=== PATIENT | male | born 1990 | race Caucasian/White ===

== ENCOUNTER 2017-01-30 06:17 | Emergency (ER) | payer MEDICAID ==
[2017-01-30 06:19] VITALS: BMI 24.2
[2017-01-30 06:37] VITALS: TEMP 98
--- NOTE | 2017-01-30 06:51 | ED PDOC ---
Arrival/HPI - General Chief Complaint: Palpitations Time Seen by Provider: 01/30/17 06:39 Historian: Patient - History of Present Illness Narrative History of Present Illness (Text): 01/30/17 06:48 26 yo male with h/o Anxiety, presents c/o of palpitations, chest tightness, and feeling tense x 1 hour. States that he is also over thinking a lot and hasn't been able to sleep well. This feels like his pattern of anxiety and sometimes he needs to come to the ED for medications. No chest pain. No nausea or vomiting. No back pain. No fever or cough. PMD: None. Psych: None. Past Medical History - Provider Review Nursing Documentation Reviewed: Yes - Infectious Disease Hx of Infectious Diseases: None - Cardiac Hx Cardiac Disorders: No - Pulmonary Hx Respiratory Disorders: No - Neurological Hx Neurological Disorder: No - HEENT Hx HEENT Disorder: No - Renal Hx Renal Disorder: No - Endocrine/Metabolic Hx Endocrine Disorders: No - Hematological/Oncological Hx Blood Disorders: No - Integumentary Hx Dermatological Disorder: No - Musculoskeletal/Rheumatological Hx Musculoskeletal Disorders: No - Gastrointestinal Hx Gastrointestinal Disorders: No - Genitourinary/Gynecological Hx Genitourinary Disorders: No - Psychiatric Hx Anxiety: Yes Hx Substance Use: No - Anesthesia Hx Anesthesia: No Hx Anesthesia Reactions: No Hx Malignant Hyperthermia: No - Suicidal Assessment Feels Threatened In Home Enviroment: No Family/Social History - Physician Review Nursing Documentation Reviewed: Yes Family/Social History: No Known Family HX Smoking Status: Never Smoked Hx Alcohol Use: No Hx Substance Use: No Allergies/Home Meds Allergies/Adverse Reactions: Allergies No Known Allergies Allergy (Verified 11/22/15 03:53) Review of Systems - Physician Review All systems were reviewed & negative as marked: Yes - Review of Systems Constitutional: Normal Eyes: Normal ENT: Normal Respiratory: Normal. absent: SOB Cardiovascular: Palpitations. absent: Chest Pain, Edema, Calf Pain, [place], Orthopnea Gastrointestinal: Normal Genitourinary Male: Normal Musculoskeletal: Normal Skin: Normal Neurological: Normal Endocrine: Normal Hemo/Lymphatic: Normal Psychiatric: Anxiety. absent: Depression, Suicidal Ideation Physical Exam Vital Signs Reviewed: Yes Vital Signs Temp Pulse Resp BP Pulse Ox 01/30/17 06:36 98.0 F 92 H 18 148/94 H 100 Temperature: Afebrile Blood Pressure: Normal Pulse: Regular Respiratory Rate: Normal Appearance: Positive for: Well-Appearing, Non-Toxic, Comfortable Pain Distress: None Mental Status: Positive for: Alert and Oriented X 3 - Systems Exam Head: Present: Atraumatic, Normocephalic Pupils: Present: PERRL Extroacular Muscles: Present: EOMI Conjunctiva: Present: Normal Mouth: Present: Moist Mucous Membranes Neck: Present: Normal Range of Motion Respiratory/Chest: Present: Clear to Auscultation, Good Air Exchange. No: Respiratory Distress, Accessory Muscle Use Cardiovascular: Present: Regular Rate and Rhythm, Normal S1, S2. No: Murmurs Abdomen: Present: Normal Bowel Sounds. No: Tenderness, Distention, Peritoneal Signs Back: Present: Normal Inspection Upper Extremity: Present: Normal Inspection. No: Cyanosis, Edema Lower Extremity: Present: Normal Inspection. No: Edema Neurological: Present: GCS=15, CN II-XII Intact, Speech Normal Skin: Present: Warm, Dry, Normal Color. No: Rashes Psychiatric: Present: Alert, Oriented x 3, Normal Insight, Normal Concentration. No: Suicidal Ideation, Homicidal Ideation Medical Decision Making ED Course and Treatment: 01/30/17 06:51 26 yo male with palpitations, chest tightness, feeling tense similar to previous anxiety symptoms -- EKG -- Ativan -- Reevaluate 01/30/17 06:[address] Escobedo to reevaluate and disposition. - EKG Interpretation Interpreted by ED Physician: Yes (NSR at [address] elevations, nl intervals) Type: 12 lead EKG Disposition/Present on Arrival - Present on Arrival Any Indicators Present on Arrival: No History of DVT/PE: No History of Uncontrolled Diabetes: No Urinary Catheter: No History of Decub. Ulcer: No History Surgical Site Infection Following: None - Disposition Have Diagnosis and Disposition been Completed?: No Diagnosis: Anxiety Disposition Time: 06:52 Condition: GOOD
[2017-01-30 07:26] VITALS: BP 117/85; PULSE 84; RESP 14; O2SAT 99
--- NOTE | 2017-01-30 07:42 | ED PDOC ---
Physical Exam Vital Signs Temp Pulse Resp BP Pulse Ox 01/30/17 07:25 84 14 117/85 99 01/30/17 06:36 98.0 F 92 H 18 148/94 H 100 Medical Decision Making ED Course and Treatment: 01/30/17 07:42 pt endorsed to me pending reassessement. pt reports feeing improved. comfortable with dc. advise outpt f/u return precautions - Medication Orders Current Medication Orders: Discontinued Medications Lorazepam (Ativan) 1 mg PO ONCE ONE PRN Reason: Protocol Stop: 01/30/17 06:48 Last Admin: 01/30/17 07:01 Dose: 1 MG Behavioural Document 01/30/17 07:01 SB (Rec: 01/30/17 07:01 SB [id number]) Maintenance Maintenance Dose No Nonmedicinal Nonmedicinal Interventions Redirect Therapeutic Communication Behavior Behavior for Medication: Anxiety Disposition/Present on Arrival - Present on Arrival Any Indicators Present on Arrival: No History of DVT/PE: No History of Uncontrolled Diabetes: No Urinary Catheter: No History of Decub. Ulcer: No History Surgical Site Infection Following: None - Disposition Have Diagnosis and Disposition been Completed?: Yes Diagnosis: Anxiety Disposition: HOME/ ROUTINE Disposition Time: 07:42 Patient Problems: Current Active Problems Problem Status Diagnosed Anxiety Acute Condition: GOOD Discharge Instructions (ExitCare): Chest Pain (ED), Anxiety (ED) Print Language: THAI Additional Instructions: please follow up with your doctor. return toe r with worsening symptoms or concerns Referrals: [facility] [Outside] - Follow up with primary [facility] [Outside] - [place] up with [place] [facility] [place] - Follow up with primary
--- NOTE | 2017-01-31 09:25 | CARD ---
APPROVED REPORT EKG Measurement Heart [id number] [id number] <Conclusion> Normal sinus rhythm Normal ECG No change
== END 2017-01-30 07:56 | disposition home or self-care (01) ==
LOC: ED 06:17
DX: F41.9 Anxiety disorder, unspecified (principal)

== ENCOUNTER 2017-06-16 02:41 | Emergency (ER) | payer MEDICAID ==
[2017-06-16 02:41] VITALS: BMI 24.2
[2017-06-16 02:51] VITALS: TEMP 98.2; O2SAT 100
[2017-06-16] MEDS ORDERED: DiphenhydrAMINE 50 mg/ml Inj IM STA (03:00)
--- NOTE | 2017-06-16 03:02 | ED PDOC ---
Arrival/HPI - General Chief Complaint: Anxiety Time Seen by Provider: 06/16/17 02:55 Historian: Patient - History of Present Illness Narrative History of Present Illness (Text): 06/16/17 02:59 James La is a 26 year old male, with a history of anxiety, presents to the emergency department for evaluation of "strange" feeling after taking half of 2mg Xanax bar tablet off the streets. Patient states he feels jittery and thinks that Xanax may be laced with something. Patient also notes that he is anxious and hyperventilating with some stiffness to his fingers. Denies any fever, chills, headache, dizziness, nausea, vomiting, diarrhea, or any other complaints at this time. Time/Duration: Prior to Arrival Severity Level: Mild Activities at Onset: Light Past Medical History - Provider Review Nursing Documentation Reviewed: Yes - Infectious Disease Hx of Infectious Diseases: None - Cardiac Hx Cardiac Disorders: No - Pulmonary Hx Respiratory Disorders: No - Neurological Hx Neurological Disorder: No - HEENT Hx HEENT Disorder: No - Renal Hx Renal Disorder: No - Endocrine/Metabolic Hx Endocrine Disorders: No - Hematological/Oncological Hx Blood Disorders: No - Integumentary Hx Dermatological Disorder: No - Musculoskeletal/Rheumatological Hx Musculoskeletal Disorders: No - Gastrointestinal Hx Gastrointestinal Disorders: No - Genitourinary/Gynecological Hx Genitourinary Disorders: No - Psychiatric Hx Anxiety: Yes Hx Substance Use: No - Anesthesia Hx Anesthesia: No Hx Anesthesia Reactions: No Hx Malignant Hyperthermia: No - Suicidal Assessment Feels Threatened In Home Enviroment: No Family/Social History - Physician Review Nursing Documentation Reviewed: Yes Family/Social History: No Known Family HX Smoking Status: Never Smoked Hx Alcohol Use: No Hx Substance Use: No Allergies/Home Meds Allergies/Adverse Reactions: Allergies No Known Allergies Allergy (Verified 06/16/17 02:52) Home Medications: Home Meds Medication Instructions Recorded Confirmed No Known Home Med 06/16/17 06/16/17 Review of Systems - Physician Review All systems were reviewed & negative as marked: Yes - Review of Systems Constitutional: Normal. absent: Fatigue, Fevers Respiratory: absent: SOB, Cough, Sputum Cardiovascular: absent: Chest Pain, Palpitations Gastrointestinal: absent: Abdominal Pain, Diarrhea, Nausea, Vomiting Musculoskeletal: Other (stiffness to fingers ) Neurological: absent: Headache, Dizziness Psychiatric: Anxiety Physical Exam Vital Signs Reviewed: Yes Vital Signs Temp Pulse Resp BP Pulse Ox 06/16/17 05:37 80 16 114/63 100 06/16/17 02:47 98.2 F 110 H 20 128/69 100 Temperature: Afebrile Blood Pressure: Normal Pulse: Tachycardic Respiratory Rate: Normal Appearance: Positive for: Well-Appearing, Non-Toxic, Comfortable Pain Distress: None Mental Status: Positive for: Alert and Oriented X 3 - Systems Exam Head: Present: Atraumatic, Normocephalic Pupils: Present: PERRL Extroacular Muscles: Present: EOMI Conjunctiva: Present: Normal Mouth: Present: Moist Mucous Membranes Respiratory/Chest: Present: Clear to Auscultation, Good Air Exchange. No: Respiratory Distress, Accessory Muscle Use Cardiovascular: Present: Regular Rate and Rhythm, Normal S1, S2. No: Murmurs Abdomen: Present: Normal Bowel Sounds. No: Tenderness, Distention, Peritoneal Signs Upper Extremity: Present: Normal Inspection. No: Cyanosis, Edema Lower Extremity: Present: Normal Inspection. No: Edema Neurological: Present: GCS=15, CN II-XII Intact, Speech Normal, Motor Func Grossly Intact, Normal Sensory Function Skin: Present: Warm, Dry, Normal Color. No: Rashes Psychiatric: Present: Alert, Oriented x 3 Medical Decision Making ED Course and Treatment: 06/16/17 03:03 Impression: A 26 year old male who presents to the emergency department complaining of feeling "strange" and thinks a developed a reaction after ingesting half a 2mg Xanax tablet off the streets. Plan: -- Benadryl -- Reassess and disposition Progress Notes: 06/16/17 05:41 On re-evaluation, patient feels better and is in no acute distress. I have discussed the results and plan with the patient, who expresses understanding. Patient in agreement with plan to be discharged home. Patient is stable for discharge. Patient was instructed to follow up with physician or return if symptoms worsen or new concerning symptoms arise. - Medication Orders Current Medication Orders: Discontinued Medications Diphenhydramine HCl (Benadryl) 50 mg IM ONCE STA Stop: 06/16/17 03:01 Last Admin: 06/16/17 03:36 Dose: 50 mg - Scribe Statement The provider has reviewed the documentation as recorded by the Scribe Juan Meyer Provider Attestation: Provider Scribe Attestation: All medical record entries made by the Scribe were at my direction and personally dictated by me. I have reviewed the chart and agree that the record accurately reflects my personal performance of the history, physical exam, medical decision making, and the department course for this patient. I have also personally directed, reviewed, and agree with the discharge instructions and disposition. Disposition/Present on Arrival - Present on Arrival Any Indicators Present on Arrival: No History of DVT/PE: No History of Uncontrolled Diabetes: No Urinary Catheter: No History of Decub. Ulcer: No History Surgical Site Infection Following: None - Disposition Have Diagnosis and Disposition been Completed?: Yes Diagnosis: Anxiety, Drug reaction Disposition: HOME/ ROUTINE Disposition Time: 05:31 Patient Plan: Discharge Condition: GOOD Discharge Instructions (ExitCare): Adverse Drug Reaction (ED), Anxiety (ED) Additional Instructions: Avoid xanax drug use/follow up with your doctor Forms: [employer] (Guatemalan)
[2017-06-16 05:37] VITALS: BP 114/63; PULSE 80; RESP 16
== END 2017-06-16 05:39 | disposition home or self-care (01) ==
LOC: ED 02:41
DX: F41.9 Anxiety disorder, unspecified (principal); T42.4X5A Adverse effect of benzodiazepines, initial encounter; Y92.410 Unspecified street and highway as the place of occurrence of the external cause
CPT/HCPCS: 96372; 99283; J1200

== ENCOUNTER 2017-06-20 02:43 | Emergency (ER) | payer MEDICAID ==
[2017-06-20 02:49] VITALS: BMI 23.5
[2017-06-20 03:10] VITALS: TEMP 98
--- NOTE | 2017-06-20 04:20 | ED PDOC ---
Arrival/HPI - General Chief Complaint: Anxiety Time Seen by Provider: 06/20/17 02:55 Historian: Patient - History of Present Illness Narrative History of Present Illness (Text): 06/20/17 04:16 A 26 year old male presents to the emergency department complaining of recurrent anxiety attacks and shortness of breath. Patient reports he has had an anxiety attack everyday for about a year. Patient reports taking Xanax two days ago. Hasn't taken any medications today. Denies any drug use. Denies any suicidal ideation or any other complaints at this time. Symptom Onset: Sudden Symptom Course: Unchanged Activities at Onset: Rest Context: Home Past Medical History - Provider Review Nursing Documentation Reviewed: Yes - Infectious Disease Hx of Infectious Diseases: None - Cardiac Hx Cardiac Disorders: No - Pulmonary Hx Respiratory Disorders: No - Neurological Hx Neurological Disorder: No - HEENT Hx HEENT Disorder: No - Renal Hx Renal Disorder: No - Endocrine/Metabolic Hx Endocrine Disorders: No - Hematological/Oncological Hx Blood Disorders: No - Integumentary Hx Dermatological Disorder: No - Musculoskeletal/Rheumatological Hx Musculoskeletal Disorders: No - Gastrointestinal Hx Gastrointestinal Disorders: No - Genitourinary/Gynecological Hx Genitourinary Disorders: No - Psychiatric Hx Anxiety: Yes Hx Substance Use: No - Anesthesia Hx Anesthesia: No Hx Anesthesia Reactions: No Hx Malignant Hyperthermia: No - Suicidal Assessment Feels Threatened In Home Enviroment: No Family/Social History - Physician Review Nursing Documentation Reviewed: Yes Family/Social History: No Known Family HX Smoking Status: Never Smoked Hx Alcohol Use: No Hx Substance Use: No Allergies/Home Meds Allergies/Adverse Reactions: Allergies No Known Allergies Allergy (Verified 06/16/17 02:52) Home Medications: Home Meds Medication Instructions Recorded Confirmed No Known Home Med 06/16/17 06/20/17 Review of Systems - Physician Review All systems were reviewed & negative as marked: Yes - Review of Systems Respiratory: SOB Psychiatric: Anxiety. absent: Suicidal Ideation Physical Exam Vital Signs Reviewed: Yes Vital Signs Temp Pulse Resp BP Pulse Ox 06/20/17 03:09 98.0 F 87 17 120/82 98 06/20/17 02:44 98.2 F 80 16 120/82 97 Temperature: Afebrile Blood Pressure: Normal Pulse: Regular Respiratory Rate: Normal Appearance: Positive for: Well-Appearing, Non-Toxic, Comfortable Pain Distress: None Mental Status: Positive for: Alert and Oriented X 3 - Systems Exam Head: Present: Atraumatic, Normocephalic Pupils: Present: PERRL Extroacular Muscles: Present: EOMI Conjunctiva: Present: Normal Mouth: Present: Moist Mucous Membranes Neck: Present: Normal Range of Motion Respiratory/Chest: Present: Clear to Auscultation, Good Air Exchange. No: Respiratory Distress, Accessory Muscle Use Cardiovascular: Present: Regular Rate and Rhythm, Normal S1, S2. No: Murmurs Abdomen: Present: Normal Bowel Sounds. No: Tenderness, Distention, Peritoneal Signs Back: Present: Normal Inspection Upper Extremity: Present: Normal Inspection. No: Cyanosis, Edema Lower Extremity: Present: Normal Inspection. No: Edema Neurological: Present: GCS=15, CN II-XII Intact, Speech Normal Skin: Present: Warm, Dry, Normal Color. No: Rashes Psychiatric: Present: Alert, Oriented x 3, Normal Insight, Normal Concentration. No: Suicidal Ideation Medical Decision Making ED Course and Treatment: Patient feels better and is in no acute distress. Patient in agreement with plan to be discharged home. Patient is stable for discharge. Patient was instructed to follow up with physician or return if symptoms worsen or new concerning symptoms arise. - Medication Orders Current Medication Orders: Discontinued Medications Lorazepam (Ativan) 1 mg PO STAT STA PRN Reason: Protocol Stop: 06/20/17 03:49 - Scribe Statement The provider has reviewed the documentation as recorded by the Jacinta Pandya Provider Scribe Attestation: All medical record entries made by the Scribe were at my direction and personally dictated by me. I have reviewed the chart and agree that the record accurately reflects my personal performance of the history, physical exam, medical decision making, and the department course for this patient. I have also personally directed, reviewed, and agree with the discharge instructions and disposition. Disposition/Present on Arrival - Present on Arrival History of DVT/PE: No History of Uncontrolled Diabetes: No Urinary Catheter: No History of Decub. Ulcer: No History Surgical Site Infection Following: None - Disposition Diagnosis: Recurrent anxiety Disposition: HOME/ ROUTINE Disposition Time: 03:56 Condition: STABLE Discharge Instructions (ExitCare): Generalized Anxiety Disorder (ED) Additional Instructions: Please follow up with a primary doctor this week. Return to the ER for any worsening symptoms or for any other concerns. Referrals: [facility] [Outside] - [facility] with [facility] [[facility]] - Follow up with primary Forms: [email or web address] (Wolof)
[2017-06-20 05:34] VITALS: BP 118/81; PULSE 78; RESP 18; O2SAT 100
== END 2017-06-20 04:35 | disposition home or self-care (01) ==
LOC: ED 02:43
DX: F41.9 Anxiety disorder, unspecified (principal)

== ENCOUNTER 2017-07-26 01:26 | Observation (INO) | payer MEDICAID ==
[2017-07-26 01:26] VITALS: BMI 24.2
--- NOTE | 2017-07-26 02:39 | ED PDOC ---
Arrival/HPI <Owen Chu - Last Filed: 07/26/17 05:27> - General Historian: Patient <Irving Anglin - Last Filed: 07/26/17 05:46> - General Chief Complaint: Cough, Cold, Congestion Time Seen by Provider: 07/26/17 02:30 - History of Present Illness Narrative History of Present Illness (Text): 07/26/17 02:37 27 year old male presenting to the emergency room with complaint of palpitations. Patient states he has a history of anxiety that he has treated with purchasing xanax and ativan on the street. He has recently been seen in the [facility] ED multiple times in the past couple of months for similar events. Patient states that he feels like his heart is racing. Patient reports episodes of SOB associated with his palpitations. This feels similar to other panic attacks he has had in the past. Patient reports that he started with a cold yesterday. He states that he has been having a runny nose. Patient took DayQuil around 8 pm tonight. Denies f/c, n/v, d/c, hassan, cp. Patient has not followed with anyone since his last visit. Says he plans on going to a treatment center in [place] for his anxiety. Patient denies any illicit drug use. Previous records show that he has purchased and taken adderall, xanax and ativan off of the street. 07/26/17 03:58 (Irving Anglin) Past Medical History - Provider Review Nursing Documentation Reviewed: Yes - Infectious Disease Hx of Infectious Diseases: None - Cardiac Hx Cardiac Disorders: No - Pulmonary Hx Respiratory Disorders: No - Neurological Hx Neurological Disorder: No - HEENT Hx HEENT Disorder: No - Renal Hx Renal Disorder: No - Endocrine/Metabolic Hx Endocrine Disorders: No - Hematological/Oncological Hx Blood Disorders: No - Integumentary Hx Dermatological Disorder: No - Musculoskeletal/Rheumatological Hx Musculoskeletal Disorders: No - Gastrointestinal Hx Gastrointestinal Disorders: No - Genitourinary/Gynecological Hx Genitourinary Disorders: No - Psychiatric Hx Anxiety: Yes Hx Substance Use: No - Anesthesia Hx Anesthesia: No Hx Anesthesia Reactions: No Hx Malignant Hyperthermia: No - Suicidal Assessment Feels Threatened In Home Enviroment: No <Irving Anglin - Last Filed: 07/26/17 05:46> Family/Social History - Physician Review Nursing Documentation Reviewed: Yes Family/Social History: Unknown Family HX Smoking Status: Current Some Days Smoker Hx Alcohol Use: No Hx Substance Use: No <Irving Anglin - Last Filed: 07/26/17 05:46> Allergies/Home Meds <Owen Chu - Last Filed: 07/26/17 05:27> <Irving Anglin - Last Filed: 07/26/17 05:46> Allergies/Adverse Reactions: Allergies No Known Allergies Allergy (Verified 07/26/17 01:44) Home Medications: Home Meds Medication Instructions Recorded Confirmed No Known Home Med 06/16/17 07/26/17 Review of Systems - Physician Review All systems were reviewed & negative as marked: Yes - Review of Systems Constitutional: Normal. absent: Fatigue, Fevers Eyes: Normal. absent: Vision Changes, Photophobia ENT: Rhinorrhea. absent: Sore Throat, Epistaxis Respiratory: SOB. absent: Cough, Sputum Cardiovascular: Palpitations. absent: Chest Pain, Edema, Calf Pain, Syncope Gastrointestinal: Normal. absent: Abdominal Pain, Constipation, Diarrhea, Nausea, Vomiting Genitourinary Male: Normal. absent: Dysuria, Frequency Musculoskeletal: Normal Skin: Normal. absent: Rash, Pruritis Neurological: absent: Headache, Dizziness Endocrine: Normal. absent: Diaphoresis Psychiatric: Normal <Irving Anglin - Last Filed: 07/26/17 05:46> Physical Exam Vital Signs Reviewed: Yes Temperature: Afebrile Blood Pressure: Normal Pulse: Tachycardic Respiratory Rate: Normal Appearance: Positive for: Well-Appearing, Non-Toxic, Comfortable Pain Distress: None Mental Status: Positive for: Alert and Oriented X 3 - Systems Exam Head: Present: Atraumatic, Normocephalic Extroacular Muscles: Present: EOMI Conjunctiva: Present: Normal Mouth: Present: Moist Mucous Membranes, Dry Nose (External): Present: Atraumatic, Abrasion Nose (Internal): Present: No Active Bleeding, Moist, Other (white crust around left nostril). No: Clear Mucous, Rhinorrhea Neck: Present: Normal Range of Motion. No: Meningeal Signs, JVD Respiratory/Chest: Present: Clear to Auscultation, Good Air Exchange. No: Respiratory Distress, Accessory Muscle Use, Wheezes, Rales, Rhonchi, Tachypneic Cardiovascular: Present: Normal S1, S2, Tachycardic Abdomen: Present: Tenderness, Normal Bowel Sounds. No: Distention, Peritoneal Signs Upper Extremity: Present: Normal Inspection, NORMAL PULSES. No: Edema Lower Extremity: Present: Normal Inspection, NORMAL PULSES. No: Edema, CALF TENDERNESS Neurological: Present: GCS=15 Skin: Present: Warm, Dry, Normal Color. No: Rashes Psychiatric: Present: Alert, Oriented x 3, Anxious <Irving Anglin - Last Filed: 07/26/17 05:46> Vital Signs Temp Pulse Resp BP Pulse Ox 07/26/17 01:42 98.3 F 126 H 17 146/87 100 Medical Decision Making <Owen Chu - Last Filed: 07/26/17 05:27> <Irving Anglin - Last Filed: 07/26/17 05:46> ED Course and Treatment: Impression: Pt seen and evaluated with medical and health services manager. Pt, whose past medical history includes anxiety, presented for palpitations. Pt states symptoms are consistent with previous episodes of anxiety. Aware and agrees with HPI, clinical findings , plan, and management. Plan: -- IV fluids -- Ativan -- Reassess and disposition 07/26/17 05:17 Case discussed with medical and health services manager manager continuous improvement, who is aware and agrees with plan. Case discussed with Dr. Robertson, who is aware and agrees with plan. Accepts pt in to hospitalist service. Pt will go to Telemetry observation for tachycardia and hypophosphatemia. (Owen Chu) 07/26/17 02:43 Anxiety - Palpitations - EKG - Sinus Tachy @139bpm, normal axis, otherwise normal EKG - Ativan 1mg PO - no change, Ativan 1mg IV given - CBC - wnl - CMP - wnl - Mag 1.6/Phos 1.1 replete with Neutra-Phos - UDS DISPO: Admit to Telemetry observation for tachycardia and hypophosphatemia. (Irving Anglin) - Lab Interpretations Lab Results: 07/26/17 04:30 07/26/17 04:30 Lab Results 07/26/17 04:30: Sodium 146, Potassium 3.8, Chloride 111 H, Carbon Dioxide 24, Anion Gap 15, BUN 11, Creatinine 0.8, Est GFR ( Amer) > 60, Est GFR (Non- Af Amer) > 60, Random Glucose 99, Calcium 8.7, Phosphorus 1.1 L*, Magnesium 1.6 L, Total Bilirubin 0.5, AST 40, ALT 61 H, Alkaline Phosphatase 41, Lactate Dehydrogenase 464, Total Creatine Kinase 123, Troponin I < 0.01, Total Protein 6.9, Albumin 4.2, Globulin 2.7, Albumin/Globulin Ratio 1.6 07/26/17 04:30: WBC 8.0 D, RBC 5.02, Hgb 15.1, Hct 41.9 L, MCV 83.5, MCH 30.1, MCHC 36.0, RDW 13.1, Plt Count 221, MPV 9.1, Gran % 82.0 H, Lymph % (Auto) 7.9 L , [place] % (Auto) 8.7 H, Eos % (Auto) 1.3 L, Baso % (Auto) 0.1, Gran # 6.53 H, Lymph # 0.6 L, [place] # 0.7 H, Eos # 0.1, Baso # 0.01 - Medication Orders Current Medication Orders: Discontinued Medications Sodium Chloride (Sodium Chloride 0.9%) 1,000 mls @ 999 mls/hr IV .Q1H1M STA Stop: 07/26/17 03:40 Last Admin: 07/26/17 02:51 Dose: 999 mls/hr Lorazepam (Ativan) 1 mg PO ONCE ONE PRN Reason: Protocol Stop: 07/26/17 02:34 Last Admin: 07/26/17 03:05 Dose: 1 mg Lorazepam (Ativan) 1 mg IVP ONCE ONE PRN Reason: Protocol Stop: 07/26/17 04:26 Last Admin: 07/26/17 04:41 Dose: 1 mg Lorazepam (Ativan) Confirm Administered Dose 2 mg .ROUTE .STK-MED ONE Stop: 07/26/17 04:34 Last Admin: 07/26/17 04:41 Dose: Not Given Potassium Phos/Sodium Phos (Neutra-Phos) 1 pkt PO ONCE ONE Stop: 07/26/17 05:07 - PA / EDUCATIONAL CONSULTANT / Resident Statement ALLIE has reviewed & agrees with the documentation as recorded. MD/DO has examined the patient and agrees with the treatment plan. <Owen Chu - Last Filed: 07/26/17 05:27> Disposition/Present on Arrival <Owen Chu - Last Filed: 07/26/17 05:27> - Present on Arrival Any Indicators Present on Arrival: No History of DVT/PE: No History of Uncontrolled Diabetes: No Urinary Catheter: No History of Decub. Ulcer: No History Surgical Site Infection Following: None - Disposition Have Diagnosis and Disposition been Completed?: Yes Disposition Time: 05:12 Patient Plan: Admission, Observation, Telemetry <Irving Anglin - Last Filed: 07/26/17 05:46> - Disposition Diagnosis: Anxiety, Hypophosphatemia, Tachycardia Disposition: HOSPITALIZED Patient Problems: Current Active Problems Problem Status Onset Anxiety Acute Hypophosphatemia Acute Tachycardia Acute Condition: GUARDED
[2017-07-26] MEDS ORDERED: Sodium Chloride 0.9% 1,000 ML IV STA (02:40)
[2017-07-26] MEDS ORDERED: Metoprolol 1 mg/ml Inj IVP STA (04:25)
[2017-07-26 04:45] LABS: BASO # 0.01 K/mm3 (0.0-2.0); BASO % 0.1 % (0.0-3.0); EOS # 0.1 (0.0-0.7); EOS % 1.3 % (1.5-5.0); GRAN # 6.53 (1.4-6.5); HEMATOCRIT 41.9 % (42.0-52.0); LYMPH # 0.6 (1.2-3.4); LYMPH % 7.9 % (22.0-35.0); MEAN CELL VOLUME 83.5 fl (80.0-105.0); MEAN CORPUSCULAR HEMOGLOBIN 30.1 pg (25.0-35.0); MEAN PLATELET VOLUME 9.1 fl (7.0-11.0); MONO # 0.7 (0.1-0.6); MONO % 8.7 % (1.0-6.0); RED CELL DISTRIBUTION WIDTH 13.1 % (11.5-14.5)
[2017-07-26 04:53] LABS: ALB/GLOB RATIO 1.6 (1.1-1.8); ALKALINE PHOSPHATASE 41 U/L (38-126); ALT/SGPT 61 U/L (7-56); AST/SGOT 40 U/L (17-59); BILIRUBIN,TOTAL 0.5 mg/dL (0.2-1.3); BLOOD UREA NITROGEN 11 mg/dL (7-21); CALCIUM 8.7 mg/dL (8.4-10.5); CARBON DIOXIDE 24 mmol/L (21-33); CHLORIDE 111 mmol/L (98-107); GFR AFRICAN-AMERICAN > 60; GLUCOSE,RANDOM 99 mg/dL (70-110); MAGNESIUM 1.6 mg/dL (1.7-2.2); POTASSIUM 3.8 mmol/L (3.6-5.0); SODIUM 146 mmol/L (132-148); TOTAL PROTEIN 6.9 g/dL (5.8-8.3)
[2017-07-26 04:55] LABS: PHOSPHOROUS 1.1 mg/dL (2.5-4.5)
[2017-07-26 05:05] LABS: TROPONIN I < 0.01 ng/mL
[2017-07-26] MEDS ORDERED: Potassium & Sodium Phosphate PO ONE (05:06)
[2017-07-26] MEDS ORDERED: Sodium Phosphate 15 MMOLE in Dextrose 5% In Water 250 ML IVPB ONE ×2 (05:45→06:20)
[2017-07-26] MEDS ORDERED: Magnesium Sulfate 1 gm in D5W 1 GM/100 ML BAG IVPB ONE (05:46)
--- NOTE | 2017-07-26 05:47 | CP.PCM.HP ---
<MAXIMILIAN GABRIEL - Last Filed: 07/26/17 06:50> History of Present Illness - History of Present Illness History of Present Illness: Maximilian Gabriel, H&P for Dr. Robertson: CC: palpitations 27M with PMH anxiety, panic attacks, presents for palpitations x 6h [employer]. Pt states that he felt like he was having a panic attack, has sob, chest tightness , numbness/tingling in bilateral hands x few mins. Pt did have a cold the past few days, for which he has been taking Dayquil. Denies cp, diaphoresis, n/v/f/c , abdominal pain, constipation/diarrhea, urinary symptoms, leg swelling. In ED, pt tachycardic 139 S tachy, bp 146/87, phop 1.1, Mg 1.6, UDS neg, received ativan 1 mg POx2. neutra phosph PO x1, NS 1L bolus. PMH: anxiety, panic attacks PSH: denies ALl; NKA FH: Father, Multiple myeloma SH: lives with family. Denies alcohol use. Smokes 1-2 ciggs occasionally. Denies drug use. Previous records show that he has purchased and taken adderall , xanax and ativan off of the street. PMD: Dr Helms (visited last month - was prescribed Zoloft, but did not refill prescription) Present on Admission - Present on Admission Any Indicators Present on Admission: No History of DVT/PE: No History of Uncontrolled Diabetes: No Urinary Catheter: No Decubitus Ulcer Present: No History Surgical Site Infection Following: None Review of Systems - Review of Systems All systems: reviewed and no additional remarkable complaints except Review of Systems: as per hpi Past Patient History - Infectious Disease Hx of Infectious Diseases: None - Past Social History Smoking Status: Current Some Days Smoker - CARDIAC Hx Cardiac Disorders: No - PULMONARY Hx Respiratory Disorders: No - NEUROLOGICAL Hx Neurological Disorder: No - HEENT Hx HEENT Problems: No - RENAL Hx Chronic Kidney Disease: No - ENDOCRINE/METABOLIC Hx Endocrine Disorders: No - HEMATOLOGICAL/ONCOLOGICAL Hx Blood Disorders: No - INTEGUMENTARY Hx Dermatological Problems: No - MUSCULOSKELETAL/RHEUMATOLOGICAL Hx Musculoskeletal Disorders: No - GASTROINTESTINAL Hx Gastrointestinal Disorders: No - GENITOURINARY/GYNECOLOGICAL Hx Genitourinary Disorders: No - PSYCHIATRIC Hx Anxiety: Yes Hx Substance Use: No - SURGICAL HISTORY Hx Surgeries: No - ANESTHESIA Hx Anesthesia: No Hx Anesthesia Reactions: No Hx Malignant Hyperthermia: No Meds Allergies/Adverse Reactions: Allergies Allergy/AdvReac Type Severity Reaction Status Date / Time No Known Allergies Allergy Verified 07/26/17 01:44 Physical Exam - Constitutional Appears: No Acute Distress, Younger Than Stated Age - Head Exam Head Exam: ATRAUMATIC, NORMOCEPHALIC - Eye Exam Eye Exam: EOMI, PERRL. absent: Conjunctival injection, Nystagmus, Scleral icterus Pupil Exam: NORMAL ACCOMODATION, PERRL. absent: Irregular, Unequal - ENT Exam ENT Exam: Mucous Membranes Moist - Neck Exam Neck exam: Negative for: Lymphadenopathy, Thyromegaly - Respiratory Exam Respiratory Exam: Clear to Auscultation Bilateral, NORMAL BREATHING PATTERN. absent: Accessory Muscle Use, Rales, Rhonchi, Wheezes - Cardiovascular Exam Cardiovascular Exam: Tachycardia, REGULAR RHYTHM, +S1, +S2. absent: Systolic Murmur - GI/Abdominal Exam GI & Abdominal Exam: Normal Bowel Sounds, Soft. absent: Guarding, Tenderness - Extremities Exam Extremities exam: Positive for: normal capillary refill, pedal pulses present. Negative for: calf tenderness, pedal edema - Neurological Exam Neurological exam: Alert, CN II-XII Intact, Oriented x3, Reflexes Normal - Psychiatric Exam Psychiatric exam: Normal Mood - Skin Skin Exam: Dry, Warm Results - Vital Signs Recent Vital Signs: Last Vital Signs Temp 98.3 F 07/26/17 01:42 Pulse 126 H 07/26/17 01:42 Resp 17 07/26/17 01:42 BP 146/87 07/26/17 01:42 Pulse Ox 100 07/26/17 01:42 - Labs Result Diagrams: 07/26/17 04:30 07/26/17 04:30 Assessment & Plan - Assessment and Plan (Free Text) Assessment: 27M with PMH anxiety d/o, panic attacks, admitted for tachycardia, hypophosphatemia, hypomagnesemia. Plan: Tachycardia: - EKG shows HR 139, S tachycadia, nrml QTc - Hr 120's 140's. Given Lopressor 5 mg IV stat dose. - UDS neg for cocaine - Cardio c/s, f/u recs. Kept NPO Hypophosphatemia: - Given 1 neutraphosp Pox1 in ED; given 30 mmol NaPhoph IV - f/u phosph level - Consider Endo c/s Hypomagnesemia: - repleted Hx of anxiety disorder: - Ativan 1 mg POx2 given in ED - F/u Psych c/s Discussed w Dr Robertson. Chava Gabriel, PGY1 - Date & Time Date: 07/26/17 Time: 06:59 <Rodrick Robertson - Last Filed: 07/26/17 18:52> Results - Vital Signs Recent Vital Signs: Last Vital Signs Temp 98 F 07/26/17 18:00 Pulse 100 H 07/26/17 18:00 Resp 18 07/26/17 18:00 BP 128/77 07/26/17 18:00 Pulse Ox 99 07/26/17 05:48 - Labs Result Diagrams: 07/26/17 04:30 07/26/17 09:10 Labs: Laboratory Results - last 24 hr 07/26/17 07/26/17 07/26/17 06:30 09:10 10:20 D-Dimer, Quantitative 314 H Sodium 143 Potassium 3.9 Chloride 105 Carbon Dioxide 28 Anion Gap 14 BUN 9 Creatinine 0.8 Est GFR ( Amer) > 60 Est GFR (Non-Af Amer) > 60 Random Glucose 113 H Calcium 9.5 Phosphorus 3.4 Magnesium 2.1 Total Bilirubin 0.6 AST 43 ALT 67 H Alkaline Phosphatase 39 Total Protein 7.9 Albumin 4.8 Globulin 3.1 Albumin/Globulin Ratio 1.5 TSH 3rd Generation 1.90 Attending/Attestation - Attestation I have personally seen and examined this patient.: Yes I have fully participated in the care of the patient.: Yes I have reviewed all pertinent clinical information: Yes Notes (Text): 07/26/17 18:45 Patient was seen when he was in the ER in bed # 4. Agree with history , physical examination , assessment and plan. Following should be added. 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
[2017-07-26] MEDS ORDERED: Metoprolol 1 mg/ml Inj IVP ONE (06:22)
[2017-07-26 09:37] LABS: ALB/GLOB RATIO 1.5 (1.1-1.8); ALKALINE PHOSPHATASE 39 U/L (38-126); ALT/SGPT 67 U/L (7-56); AST/SGOT 43 U/L (17-59); BILIRUBIN,TOTAL 0.6 mg/dL (0.2-1.3); BLOOD UREA NITROGEN 9 mg/dL (7-21); CALCIUM 9.5 mg/dL (8.4-10.5); CARBON DIOXIDE 28 mmol/L (21-33); CHLORIDE 105 mmol/L (98-107); GFR AFRICAN-AMERICAN > 60; GLUCOSE,RANDOM 113 mg/dL (70-110); MAGNESIUM 2.1 mg/dL (1.7-2.2); PHOSPHOROUS 3.4 mg/dL (2.5-4.5); POTASSIUM 3.9 mmol/L (3.6-5.0); SODIUM 143 mmol/L (132-148); TOTAL PROTEIN 7.9 g/dL (5.8-8.3)
--- NOTE | 2017-07-26 14:49 | RAD ---
HISTORY: SOB COMPARISON: No prior. TECHNIQUE: Chest PA and lateral FINDINGS: LUNGS: No active pulmonary disease. PLEURA: No significant pleural effusion identified. No pneumothorax apparent. CARDIOVASCULAR: Normal. OSSEOUS STRUCTURES: No significant abnormalities. VISUALIZED UPPER ABDOMEN: Normal. OTHER FINDINGS: None. IMPRESSION: No active disease.
--- NOTE | 2017-07-26 17:37 | CT ---
PROCEDURE: CT Chest with contrast (Pulmonary Angiogram) HISTORY: elevated d-dimer COMPARISON: None available. TECHNIQUE: Axial computed tomography images were obtained of the chest in the pulmonary arterial phase of enhancement. Coronal and sagittal reformatted images were created and reviewed. Intravenous contrast dose: 150 cc Omnipaque 350 Mean Hounsfield unit values in the main pulmonary artery: 260.16 Radiation dose: Total exam DLP = 349.86 mGy-cm. This CT exam was performed using one or more of the following dose reduction techniques: Automated exposure control, adjustment of the mA and/or kV according to patient size, and/or use of iterative reconstruction technique. FINDINGS: PULMONARY ARTERIES: Unremarkable. No pulmonary embolism. AORTA: No acute findings. No thoracic aortic aneurysm. LUNGS: Unremarkable. No nodule, mass or pulmonary consolidation. PLEURAL SPACES: Unremarkable. No effusion or pneuomothorax. HEART: Unremarkable. No cardiomegaly. No significant pericardial effusion. LYMPH NODES: No lymphadenopathy. BONES, CHEST WALL: Unremarkable. No fracture or destructive lesion OTHER FINDINGS: The head of the pancreas is prominent measuring 3.4 x 3.6 cm. Although pancreatic neoplasm is unlikely, elective followup recommended. Suggest elective CT attention pancreas be foreign after administration of intravenous contrast supplemented by oral contrast. IMPRESSION: Unremarkable CT pulmonary angiogram. No pulmonary embolus. No suspicious pulmonary abnormalities. Prominent head of the pancreas. Elective followup recommended.
--- NOTE | 2017-07-26 18:03 | CARD ---
APPROVED REPORT EKG Measurement Heart [id number] <Conclusion> Sinus tachycardia Otherwise normal ECG
[2017-07-26 19:41] LABS: PH,URINE 6.5 (4.7-8.0); URINE APPEARANCE CLEAR (CLEAR); URINE BILIRUBIN NEGATIVE (NEGATIVE); URINE BLOOD NEGATIVE (NEGATIVE); URINE COLOR YELLOW (YELLOW); URINE GLUCOSE (UA) NEGATIVE (NEGATIVE); URINE KETONE NEGATIVE (NEGATIVE); URINE LEUKOCYTE ESTERASE NEGATIVE Leu/uL (NEGATIVE); URINE PROTEIN NEGATIVE mg/dL (<30 mg/dL)
--- NOTE | 2017-07-27 01:05 | CON ---
CARDIOLOGY CONSULTATION DATE: REASON FOR CONSULTATION: Shortness of breath and palpitation. HISTORY OF PRESENT ILLNESS: The patient is a 27-year-old Palestinian born young male to [place] parents who lives with his parents. He presented because of palpitation. According to the father, the patient called his father while the patient was with his friends complaining of shortness of breath, palpitations and dizziness and he advised him to go to the emergency room. According to the father, the patient has frequent visits to the emergency room because of anxiety, but was never admitted and he is seeking to see an outpatient psychiatrist which he never saw so far. The patient is not on any medications at home and according to the father never had any history of depression or suicidal ideations. According to the patient himself, he felt shortness of breath and palpitation as well as dizziness. He denies any fainting. The patient denied any history of bronchial asthma. SOCIAL HISTORY: Nonsmoker, nondrinker. He is studying in [employer]. MEDICATIONS: The patient is on no medications at home. In the hospital, he is on Ativan 1 mg IV push as a single dose and Lopressor 5 mg intravenously as a single dose, and normal saline infusion. PHYSICAL EXAMINATION: GENERAL: The patient is young middle-aged male who does not appear to be in acute distress. VITAL SIGNS: Blood pressure 139/76, heart rate 136, temperature 98.2, and respirations 18. HEENT: Normocephalic. NECK: No JVD. CHEST: Clear. HEART: S1, S2 regular. ABDOMEN: Soft. EXTREMITIES: No edema. LABORATORY DATA: Urine drug screen is negative. Today SMA-7 is within normal limits except for glucose of 113, phosphorus was below normal on admission and currently 3.4 after receiving one packet of Neutra-Phos. EKG reveals sinus tachycardia at the rate of 139. There is no chest x-ray seen so far. ASSESSMENT: 1. Palpitations, sinus tachycardia. Rule out palpitations, sinus tachycardia, and shortness of breath. Rule out pulmonary infarction. 2. Rule out underlying dehydration. 3. History of anxiety. 4. Improved hypophosphatemia. CONDITION: Case was discussed with Dr. Cervantes, with the patient and his family. Echocardiographic study has been ordered as well as chest x-ray PA and lateral and urine drug screen; however, the patient intends to leave because he has classes in the college tomorrow and decision will be made to the patient after at least obtaining the chest x-ray and D-Dimer. Rickie Olivares MD
[2017-07-27 03:26] VITALS: RESP 20
[2017-07-27 06:22] LABS: BASO # 0.02 K/mm3 (0.0-2.0); BASO % 0.3 % (0.0-3.0); EOS # 0.3 (0.0-0.7); EOS % 5.4 % (1.5-5.0); GRAN # 2.71 (1.4-6.5); GRAN % 44.7 % (50.0-68.0); HEMATOCRIT 45.6 % (42.0-52.0); LYMPH # 2.4 (1.2-3.4); LYMPH % 40.1 % (22.0-35.0); MEAN CELL VOLUME 84.1 fl (80.0-105.0); MEAN CORPUSCULAR HEMOGLOBIN 29.5 pg (25.0-35.0); MEAN CORPUSCULAR HGB CONC 35.1 g/dl (31.0-37.0); MEAN PLATELET VOLUME 9.1 fl (7.0-11.0); MONO # 0.6 (0.1-0.6); MONO % 9.5 % (1.0-6.0); RED CELL DISTRIBUTION WIDTH 13.4 % (11.5-14.5); WHITE BLOOD COUNT 6.1 10^3/ul (4.5-11.0)
[2017-07-27 06:28] LABS: ALB/GLOB RATIO 1.3 (1.1-1.8); ALKALINE PHOSPHATASE 40 U/L (38-126); ALT/SGPT 58 U/L (7-56); AST/SGOT 33 U/L (17-59); BILIRUBIN,TOTAL 0.9 mg/dL (0.2-1.3); BLOOD UREA NITROGEN 11 mg/dL (7-21); CALCIUM 9.3 mg/dL (8.4-10.5); CARBON DIOXIDE 26 mmol/L (21-33); CHLORIDE 102 mmol/L (95-110); GFR AFRICAN-AMERICAN > 60; GLUCOSE,RANDOM 92 mg/dL (70-110); POTASSIUM 3.7 mmol/L (3.6-5.0); SODIUM 140 mmol/L (132-148); TOTAL PROTEIN 7.8 g/dL (5.8-8.3)
--- NOTE | 2017-07-27 08:37 | US ---
HISTORY: Leg pain and swelling. Evaluate for DVT PHYSICIAN(S): Deric Steward MD. TECHNIQUE: Duplex sonography and color-flow Doppler with graded compression were used to evaluate the deep venous systems of both lower extremities. FINDINGS: The visualized deep venous systems of both lower extremities are sonographically normal and compressible. Normal wave forms and augmentation are seen. There is no sonographic evidence for deep venous thrombosis in the visualized segments of both lower extremities. IMPRESSION: No sonographic evidence for deep venous thrombosis in the visualized segments of both lower extremities.
--- NOTE | 2017-07-27 12:19 | PN ---
DATE: SUBJECTIVE: The patient denied any dizziness ano no reported arrhythmia. PHYSICAL EXAMINATION: VITAL SIGNS: Blood pressure of 116/65, heart rate of 82, and temperature of 97.3. HEENT: Normocephalic. CHEST: Clear. HEART: Sounds regular. EXTREMITIES: No edema. LABORATORY DATA: CT angio of the chest; no sign for pulmonary embolus and venous Doppler of the lower extremities, no DVT. ASSESSMENT: 1. Dizziness and shortness of breath on admission. 2. History of anxiety disorder. 3. Improved hypophosphatemia. RECOMMENDATIONS: Continue current telemetry observation. The patient is schedule to undergo echo cardiac studies today, which I will review once this performed. Rickie Olivares MD
--- NOTE | 2017-07-27 14:43 | CP.PCM.DIS ---
<Robel Rios - Last Filed: 07/27/17 19:04> Provider - Provider Date of Admission: 07/26/17 05:26 Attending physician: Nelida Mcdaniel MD Primary care physician: Michael Fan APN Consults: Dr. Olivares [employer] Time Spent in preparation of Discharge (in minutes): 44 Hospital Course - Lab Results Lab Results: Micro Results 07/26/17 13:30 Blood-Venous Blood Culture - Preliminary NO GROWTH AFTER 24 HOURS Most Recent Lab Values WBC 6.1 10^3/ul (4.5-11.0) D 07/27/17 05:35 RBC 5.42 10^6/uL (3.5-6.1) 07/27/17 05:35 Hgb 16.0 g/dL (14.0-18.0) 07/27/17 05:35 Hct 45.6 % (42.0-52.0) 07/27/17 05:35 MCV 84.1 fl (80.0-105.0) 07/27/17 05:35 MCH 29.5 pg (25.0-35.0) 07/27/17 05:35 MCHC 35.1 g/dl (31.0-37.0) 07/27/17 05:35 RDW 13.4 % (11.5-14.5) 07/27/17 05:35 Plt Count 229 10^3/uL (120.0-450.0) 07/27/17 05:35 MPV 9.1 fl (7.0-11.0) 07/27/17 05:35 Gran % 44.7 % (50.0-68.0) L 07/27/17 05:35 Lymph % (Auto) 40.1 % (22.0-35.0) H 07/27/17 05:35 [place] % (Auto) 9.5 % (1.0-6.0) H 07/27/17 05:35 Eos % (Auto) 5.4 % (1.5-5.0) H 07/27/17 05:35 Baso % (Auto) 0.3 % (0.0-3.0) 07/27/17 05:35 Gran # 2.71 (1.4-6.5) 07/27/17 05:35 Lymph # 2.4 (1.2-3.4) 07/27/17 05:35 [place] # 0.6 (0.1-0.6) 07/27/17 05:35 Eos # 0.3 (0.0-0.7) 07/27/17 05:35 Baso # 0.02 K/mm3 (0.0-2.0) 07/27/17 05:35 D-Dimer, Quantitative 314 mg/L FEU (0-0.50) H 07/26/17 10:20 Sodium 140 mmol/L (132-148) 07/27/17 05:35 Potassium 3.7 mmol/L (3.6-5.0) 07/27/17 05:35 Chloride 102 mmol/L (95-110) 07/27/17 05:35 Carbon Dioxide 26 mmol/L (21-33) 07/27/17 05:35 Anion Gap 16 (10-20) 07/27/17 05:35 BUN 11 mg/dL (7-21) 07/27/17 05:35 Creatinine 0.9 mg/dL (0.5-1.4) 07/27/17 05:35 Est GFR ( Amer) > 60 07/27/17 05:35 Est GFR (Non-Af Amer) > 60 07/27/17 05:35 Random Glucose 92 mg/dL (70-110) 07/27/17 05:35 Calcium 9.3 mg/dL (8.4-10.5) 07/27/17 05:35 Phosphorus 3.4 mg/dL (2.5-4.5) 07/26/17 09:10 Magnesium 2.1 mg/dL (1.7-2.2) 07/26/17 09:10 Total Bilirubin 0.9 mg/dL (0.2-1.3) 07/27/17 05:35 AST 33 U/L (17-59) 07/27/17 05:35 ALT 58 U/L (7-56) H 07/27/17 05:35 Alkaline Phosphatase 40 U/L (38-126) 07/27/17 05:35 Lactate Dehydrogenase 464 U/L (333-699) 07/26/17 04:30 Total Creatine Kinase 123 U/L (35-230) 07/26/17 04:30 Troponin I < 0.01 ng/mL 07/26/17 04:30 Total Protein 7.8 g/dL (5.8-8.3) 07/27/17 05:35 Albumin 4.4 g/dL (3.0-4.8) 07/27/17 05:35 Globulin 3.4 gm/dL 07/27/17 05:35 Albumin/Globulin Ratio 1.3 (1.1-1.8) 07/27/17 05:35 TSH 3rd Generation 1.90 mIU/mL (0.46-4.68) 07/26/17 06:30 Urine Color Yellow (YELLOW) 07/26/17 19:15 Urine Appearance Clear (CLEAR) 07/26/17 19:15 Urine pH 6.5 (4.7-8.0) 07/26/17 19:15 Ur Specific Lynn <= 1.005 (1.005-1.035) 07/26/17 19:15 Urine Protein Negative mg/dL (<30 mg/dL) 07/26/17 19:15 Urine Glucose (UA) Negative mg/dL (NEGATIVE) 07/26/17 19:15 Urine Ketones Negative mg/dL (NEGATIVE) 07/26/17 19:15 Urine Blood Negative (NEGATIVE) 07/26/17 19:15 Urine Nitrate Negative (NEGATIVE) 07/26/17 19:15 Urine Bilirubin Negative (NEGATIVE) 07/26/17 19:15 Urine Urobilinogen 1.0 E.U./dL (<1 E.U./dL) H 07/26/17 19:15 Ur Leukocyte Esterase Negative Sukhwinder/uL (NEGATIVE) 07/26/17 19:15 Urine Opiates Screen Negative (NEGATIVE) 07/26/17 19:15 Urine Methadone Screen Negative (NEGATIVE) 07/26/17 19:15 Ur Barbiturates Screen Negative (NEGATIVE) 07/26/17 19:15 Ur Phencyclidine Scrn Negative (NEGATIVE) 07/26/17 19:15 Ur Amphetamines Screen Negative (NEGATIVE) 07/26/17 19:15 U Benzodiazepines Scrn Positive (NEGATIVE) H 07/26/17 19:15 U Oth Cocaine Metabols Negative (NEGATIVE) 07/26/17 19:15 U Cannabinoids Screen Negative (NEGATIVE) 07/26/17 19:15 - Hospital Course Hospital Course: 27 year old male with a history of anxiety disorder (unspecified) who presents with complaints of palpitations, dyspnea, and feeling of derealization. He was tachycardic withh low blood levels of phosphate and magnesium on presentation to the ED. Work-up for the patient's persistent tachycardia was negative for DVT in the lower extremity, PE, hyperthyroidism, structural heart disease, or drugs that can be detected by Urine toxicology. The patient did have an elevated D-dimer which prompted the LE doppler US and CT angiography for PE protocol. By exclusion of an identifiable organic cause, and based on the patient's history and general affect, it was surmised that anxiety/panic disorder may be the underlying cause of this patient's symptoms. The patient was discharged with the below mentioned instructions, including a prescription for Hydroxyzine Pamoate 50 mg BID for anxiety PRN per psychiatry. - Date & Time of H&P Date of H&P: 07/27/17 Time of H&P: 13:00 Discharge Exam - Head Exam Head Exam: ATRAUMATIC, NORMOCEPHALIC - Eye Exam Eye Exam: EOMI, Normal appearance, PERRL - ENT Exam ENT Exam: Mucous Membranes Moist, Normal Oropharynx - Neck Exam Neck exam: Normal Inspection - Respiratory Exam Respiratory Exam: Clear to PA & Lateral, NORMAL BREATHING PATTERN - GI/Abdominal Exam GI & Abdominal Exam: Normal Bowel Sounds, Soft. absent: Guarding, Rebound - Extremities Exam Extremities exam: normal capillary refill, normal inspection, pedal pulses present - Back Exam Back exam: NORMAL INSPECTION. absent: CVA tenderness (L), CVA tenderness (R) - Neurological Exam Neurological exam: Alert, CN II-XII Intact, Oriented x3 - Psychiatric Exam Psychiatric exam: Anxious - Skin Skin Exam: Dry, Intact, Normal Color, Warm Discharge Plan - Discharge Medications Prescriptions: hydrOXYzine Pamoate [Vistaril] 50 mg PO BID PRN #28 cap PRN Reason: Anxiety - Follow Up Plan Condition: GUARDED Disposition: HOME/ ROUTINE Instructions: Palpitations (DC), Generalized Anxiety Disorder (DC) Additional Instructions: 1) No drug use 2) No alcohol use. 3) Patient should follow-up and see PMD to discuss hospital stay, within 1 week of discharge date. 4) Patient should see therapist, as he scheduled. 5) Elective follow up Computed Tomography for pancreatic head enlargement. This is most likely an incidental finding of no clinical significance given patient denies jaundice, weight loss, or early satiety. 6) Patient should take medication as prescribed. 7) Please follow up with Dr Helms for possible outpatient echo. 8) Take the prescribed medication Vistaril 50 mg bid for 2 weeks as need for anxiety, this medications might make you sleepy, so please don't take it if you' re going to be driving. Referrals: Katey Helms MD [Staff Provider] - Michael Fan APN [Primary Care Provider] - Follow up with primary <Violeta EDGE,Nelida - Last Filed: 07/28/17 16:01> Provider - Provider Date of Admission: 07/26/17 05:26 Attending physician: Nelida Mcdaniel MD Primary care physician: Michael Fan [facility] Course - Lab Results Lab Results: Micro Results 07/26/17 13:30 Blood-Venous Blood Culture - Preliminary NO GROWTH AFTER 48 HOURS Most Recent Lab Values WBC 6.1 10^3/ul (4.5-11.0) D 07/27/17 05:35 RBC 5.42 10^6/uL (3.5-6.1) 07/27/17 05:35 Hgb 16.0 g/dL (14.0-18.0) 07/27/17 05:35 Hct 45.6 % (42.0-52.0) 07/27/17 05:35 MCV 84.1 fl (80.0-105.0) 07/27/17 05:35 MCH 29.5 pg (25.0-35.0) 07/27/17 05:35 MCHC 35.1 g/dl (31.0-37.0) 07/27/17 05:35 RDW 13.4 % (11.5-14.5) 07/27/17 05:35 Plt Count 229 10^3/uL (120.0-450.0) 07/27/17 05:35 MPV 9.1 fl (7.0-11.0) 07/27/17 05:35 Gran % 44.7 % (50.0-68.0) L 07/27/17 05:35 Lymph % (Auto) 40.1 % (22.0-35.0) H 07/27/17 05:35 [place] % (Auto) 9.5 % (1.0-6.0) H 07/27/17 05:35 Eos % (Auto) 5.4 % (1.5-5.0) H 07/27/17 05:35 Baso % (Auto) 0.3 % (0.0-3.0) 07/27/17 05:35 Gran # 2.71 (1.4-6.5) 07/27/17 05:35 Lymph # 2.4 (1.2-3.4) 07/27/17 05:35 [place] # 0.6 (0.1-0.6) 07/27/17 05:35 Eos # 0.3 (0.0-0.7) 07/27/17 05:35 Baso # 0.02 K/mm3 (0.0-2.0) 07/27/17 05:35 D-Dimer, Quantitative 314 mg/L FEU (0-0.50) H 07/26/17 10:20 Sodium 140 mmol/L (132-148) 07/27/17 05:35 Potassium 3.7 mmol/L (3.6-5.0) 07/27/17 05:35 Chloride 102 mmol/L (95-110) 07/27/17 05:35 Carbon Dioxide 26 mmol/L (21-33) 07/27/17 05:35 Anion Gap 16 (10-20) 07/27/17 05:35 BUN 11 mg/dL (7-21) 07/27/17 05:35 Creatinine 0.9 mg/dL (0.5-1.4) 07/27/17 05:35 Est GFR ( Amer) > 60 07/27/17 05:35 Est GFR (Non-Af Amer) > 60 07/27/17 05:35 Random Glucose 92 mg/dL (70-110) 07/27/17 05:35 Calcium 9.3 mg/dL (8.4-10.5) 07/27/17 05:35 Phosphorus 3.4 mg/dL (2.5-4.5) 07/26/17 09:10 Magnesium 2.1 mg/dL (1.7-2.2) 07/26/17 09:10 Total Bilirubin 0.9 mg/dL (0.2-1.3) 07/27/17 05:35 AST 33 U/L (17-59) 07/27/17 05:35 ALT 58 U/L (7-56) H 07/27/17 05:35 Alkaline Phosphatase 40 U/L (38-126) 07/27/17 05:35 Lactate Dehydrogenase 464 U/L (333-699) 07/26/17 04:30 Total Creatine Kinase 123 U/L (35-230) 07/26/17 04:30 Troponin I < 0.01 ng/mL 07/26/17 04:30 Total Protein 7.8 g/dL (5.8-8.3) 07/27/17 05:35 Albumin 4.4 g/dL (3.0-4.8) 07/27/17 05:35 Globulin 3.4 gm/dL 07/27/17 05:35 Albumin/Globulin Ratio 1.3 (1.1-1.8) 07/27/17 05:35 TSH 3rd Generation 1.90 mIU/mL (0.46-4.68) 07/26/17 06:30 Urine Color Yellow (YELLOW) 07/26/17 19:15 Urine Appearance Clear (CLEAR) 07/26/17 19:15 Urine pH 6.5 (4.7-8.0) 07/26/17 19:15 Ur Specific [place] <= 1.005 (1.005-1.035) 07/26/17 19:15 Urine Protein Negative mg/dL (<30 mg/dL) 07/26/17 19:15 Urine Glucose (UA) Negative mg/dL (NEGATIVE) 07/26/17 19:15 Urine Ketones Negative mg/dL (NEGATIVE) 07/26/17 19:15 Urine Blood Negative (NEGATIVE) 07/26/17 19:15 Urine Nitrate Negative (NEGATIVE) 07/26/17 19:15 Urine Bilirubin Negative (NEGATIVE) 07/26/17 19:15 Urine Urobilinogen 1.0 E.U./dL (<1 E.U./dL) H 07/26/17 19:15 Ur Leukocyte Esterase Negative Sukhwinder/uL (NEGATIVE) 07/26/17 19:15 Urine Opiates Screen Negative (NEGATIVE) 07/26/17 19:15 Urine Methadone Screen Negative (NEGATIVE) 07/26/17 19:15 Ur Barbiturates Screen Negative (NEGATIVE) 07/26/17 19:15 Ur Phencyclidine Scrn Negative (NEGATIVE) 07/26/17 19:15 Ur Amphetamines Screen Negative (NEGATIVE) 07/26/17 19:15 U Benzodiazepines Scrn Positive (NEGATIVE) H 07/26/17 19:15 U Oth Cocaine Metabols Negative (NEGATIVE) 07/26/17 19:15 U Cannabinoids Screen Negative (NEGATIVE) 07/26/17 19:15 Attending/Attestation - Attestation I have personally seen and examined this patient.: Yes I have fully participated in the care of the patient.: Yes I have reviewed all pertinent clinical information, including history, physical exam and plan: Yes Notes (Text): 07/28/17 15:59 Patient was seen and examined with medical billing and coding specialist. Agreed with resident assessment and plan. Issue of alcohol and Drug abuse was discussed with him in detail and follow up with PCP and Psychiatry was discussed in detail. Management plan was discussed in detail with patient Education was provided. 07/28/17 16:01
[2017-07-27 16:17] VITALS: PULSE 83
[2017-07-27 16:19] VITALS: BP 120/68; TEMP 99; O2SAT 99
--- NOTE | 2017-07-27 22:26 | CON ---
REASON FOR CONSULTATION: Consultation was called for evaluation of anxiety symptoms and panic attacks. HISTORY OF PRESENT ILLNESS: The patient was seen and examined. The patient reported that he has panic attacks for what he was purchasing Xanax from the streets. The patient was advised not to do that any more and the patient reported that he has followup appointment in the clinic on . The patient reported that he has stable job and he does not feel depressed. The patient denied thoughts of killing himself or others, denied intent or plan. This administrative underwriter educated the patient about risks, benefits, and alternatives of the Vistaril. The patient is willing to take that medication. Discussed with the medical cash poster who was present during the interview and it was advised to give a 2-week supply and no refills of that medication. MEDICATIONS: Reviewed. The patient was on Klonopin and Paxil 20 mg at the night time. PHYSICAL EXAMINATION: VITAL SIGNS: Reviewed, stable. Temperature 99, pulse is 83, blood pressure 120/68, respirations 20, oxygen saturation is 99%. MENTAL STATUS: The patient is an anxious-appearing young gentleman. Fair eye contact. Speech was underproductive, low volume. Mood described as feeling okay but "I feel anxious at times." The patient's affect was constricted. Thought process was coherent and goal directed. Thought content, the patient denied visual, auditory, or tactile hallucinations. Denied paranoid ideation. The patient denied thoughts of harming himself or others. Denied intents or plan. Insight and judgment fair. Impulses are well controlled. LABORATORY DATA: Reviewed. IMPRESSION: Rule out anxiety due to general medical condition, rule out panic disorder with agoraphobia. PLAN: Continue current management. This administrative underwriter does not feel the patient is in any danger to self or others. The patient would benefit from seeing a psychiatrist and he has appointment on at the clinic. The patient will be prescribed Vistaril 50mg twice a day as needed for anxiety. Risks, benefits, and alternatives are explained to the patient. This administrative underwriter will sign off. Should they have any questions, give me a call back. Cheryl Beyer MD [facility] # [id number]
== END 2017-07-27 17:53 | disposition home or self-care (01) ==
LOC: ED 01:26 → ERH 05:26 → 2RNO 06:48
PROVIDERS: ADMIT Internal Medicine; ATTEND Internal Medicine
DX: F41.0 Panic disorder [episodic paroxysmal anxiety] (principal); R00.2 Palpitations; R00.0 Tachycardia, unspecified; E83.39 Other disorders of phosphorus metabolism; E83.42 Hypomagnesemia
CPT/HCPCS: 36415; 71020; 71275; 80053; 80324; 80345; 80346; 80349; 80353; 80358; 80361; 81003; 82550; 83615; 83735; 83992; 84100; 84443; 84484; 85025; 85378; 87040; 93005; 93970; 96361; 96374; 99285; G0378; J2060; J3475; J7040; J7060; Q9967

== ENCOUNTER 2017-08-16 01:45 | Emergency (ER) | payer MEDICAID ==
[2017-08-16 01:55] VITALS: TEMP 97.8; BMI 25.0
[2017-08-16 01:57] VITALS: BP 136/96; PULSE 76
--- NOTE | 2017-08-16 02:19 | ED PDOC ---
Arrival/HPI - General Chief Complaint: Shortness Of Breath Time Seen by Provider: 08/16/17 02:06 Historian: Patient - History of Present Illness Narrative History of Present Illness (Text): 08/16/17 02:18 A 27 year old male presents to the emergency department complaining of anxiety and shortness of breath. Patient denies any headache, dizziness, fever, chills, nausea, vomiting, chest pain, depression, suicidal ideation, homicidal ideation or any other complaints at this time. Symptom Onset: Sudden Symptom Course: Unchanged Activities at Onset: Rest Context: Home Past Medical History - Provider Review Nursing Documentation Reviewed: Yes - Infectious Disease Hx of Infectious Diseases: None - Cardiac Hx Cardiac Disorders: No - Pulmonary Hx Respiratory Disorders: No - Neurological Hx Neurological Disorder: No - HEENT Hx HEENT Disorder: No - Renal Hx Renal Disorder: No - Endocrine/Metabolic Hx Endocrine Disorders: No - Hematological/Oncological Hx Blood Disorders: No - Integumentary Hx Dermatological Disorder: No - Musculoskeletal/Rheumatological Hx Falls: No - Gastrointestinal Hx Gastrointestinal Disorders: No - Genitourinary/Gynecological Hx Genitourinary Disorders: No - Psychiatric Hx Anxiety: Yes Hx Substance Use: No - Anesthesia Hx Anesthesia: No Hx Anesthesia Reactions: No Hx Malignant Hyperthermia: No - Suicidal Assessment Feels Threatened In Home Enviroment: No Family/Social History - Physician Review Nursing Documentation Reviewed: Yes Family/Social History: No Known Family HX Smoking Status: Current Some Days Smoker Hx Alcohol Use: No Hx Substance Use: No Allergies/Home Meds Allergies/Adverse Reactions: Allergies No Known Allergies Allergy (Verified 08/16/17 01:55) Home Medications: Home Meds Medication Instructions Recorded Confirmed No Known Home Med 08/16/17 08/16/17 Review of Systems - Physician Review All systems were reviewed & negative as marked: Yes - Review of Systems Constitutional: absent: Fevers, Other (chills) Respiratory: SOB Cardiovascular: absent: Chest Pain Gastrointestinal: absent: Nausea, Vomiting Neurological: absent: Headache, Dizziness Psychiatric: Anxiety. absent: Depression, Suicidal Ideation, Other (homicidal ideation) Physical Exam Vital Signs Reviewed: Yes Vital Signs Temp Pulse Resp BP Pulse Ox 08/16/17 02:00 16 99 08/16/17 01:55 97.8 F 76 22 136/96 H 100 08/16/17 01:54 97.8 F 88 22 98 Temperature: Afebrile Blood Pressure: Normal Pulse: Regular Respiratory Rate: Normal Appearance: Positive for: Well-Appearing, Non-Toxic, Comfortable Pain Distress: None Mental Status: Positive for: Alert and Oriented X 3 - Systems Exam Head: Present: Atraumatic, Normocephalic Pupils: Present: PERRL Extroacular Muscles: Present: EOMI Conjunctiva: Present: Normal Mouth: Present: Moist Mucous Membranes Neck: Present: Normal Range of Motion Respiratory/Chest: Present: Clear to Auscultation, Good Air Exchange. No: Respiratory Distress, Accessory Muscle Use Cardiovascular: Present: Regular Rate and Rhythm, Normal S1, S2. No: Murmurs Abdomen: Present: Normal Bowel Sounds. No: Tenderness, Distention, Peritoneal Signs Back: Present: Normal Inspection Upper Extremity: Present: Normal Inspection. No: Cyanosis, Edema Lower Extremity: Present: Normal Inspection. No: Edema Neurological: Present: GCS=15, CN II-XII Intact, Speech Normal Skin: Present: Warm, Dry, Normal Color. No: Rashes Psychiatric: Present: Alert, Oriented x 3, Anxious Medical Decision Making ED Course and Treatment: 08/16/17 02:17 Impression: A 27 year old male with anxiety and shortness of breath. Plan: -- EKG -- Ativan -- Reassess and disposition Prior Visits: Notes and results from previous visits were reviewed. Patient was last seen in the emergency department on 07/26/17 for evaluation of palpitations. Progress Notes: EKG: Ordered, reviewed, and independently interpreted the EKG. Rate : 85 BPM Rhythm : NSR Interpretation : Nonspecific ST segment changes, normal intervals Re-evaluation Time: 06:28 Reassessment Condition: Re-examined, Improved - EKG Interpretation Interpreted by ED Physician: Yes Type: 12 lead EKG - Medication Orders Current Medication Orders: Discontinued Medications Lorazepam (Ativan) 1 mg PO ONCE ONE PRN Reason: Protocol Stop: 08/16/17 02:12 Last Admin: 08/16/17 02:40 Dose: 1 mg - Scribe Statement The provider has reviewed the documentation as recorded by the Jacinta Pandya Provider Scribe Attestation: All medical record entries made by the Kalynibmarianna were at my direction and personally dictated by me. I have reviewed the chart and agree that the record accurately reflects my personal performance of the history, physical exam, medical decision making, and the department course for this patient. I have also personally directed, reviewed, and agree with the discharge instructions and disposition. Disposition/Present on Arrival - Present on Arrival Any Indicators Present on Arrival: No History of DVT/PE: No History of Uncontrolled Diabetes: No Urinary Catheter: No History of Decub. Ulcer: No History Surgical Site Infection Following: None - Disposition Have Diagnosis and Disposition been Completed?: Yes Diagnosis: Anxiety Disposition: HOME/ ROUTINE Disposition Time: 06:28 Condition: GOOD Discharge Instructions (ExitCare): Anxiety (ED) Forms: [employer] (Kyrgyz)
[2017-08-16 06:13] VITALS: RESP 16; O2SAT 99
--- NOTE | 2017-08-16 08:59 | CARD ---
APPROVED REPORT EKG Measurement Heart [id number] CO 172P69 [id number] <Conclusion> Normal sinus rhythm Mild J point elevations many leads c/w early repolarization, pericarditis etc. Not seen on prior ECG 07/26/17 when the heart rate was 139 BPM.
== END 2017-08-16 06:52 | disposition home or self-care (01) ==
LOC: ED 01:45
DX: F41.9 Anxiety disorder, unspecified (principal)

== ENCOUNTER 2017-10-30 02:54 | Emergency (ER) | payer MEDICAID ==
[2017-10-30 02:55] VITALS: BMI 25.0
--- NOTE | 2017-10-30 03:36 | ED PDOC ---
Arrival/HPI - General Chief Complaint: Chest Pain Time Seen by Provider: 10/30/17 02:58 Historian: Patient - History of Present Illness Narrative History of Present Illness (Text): 10/30/17 03:35 A 27 year old male, whose past medical history includes anxiety, presents to the emergency department complaining of shortness of breath, chest pain and feeling anxious about an hour ago. Reports he sees psychiatrist, who prescribed Klonopin, notes he took one Klonopin medication prior to arrival. Notes high blood pressure and a heart rate of 128. Reports similar symptoms in the past. Patient currently feels better. Patient denies any other complaints at this time. Time/Duration: 1 hour Symptom Onset: Sudden Symptom Course: Unchanged Activities at Onset: Rest Context: Home Past Medical History - Provider Review Nursing Documentation Reviewed: Yes - Infectious Disease Hx of Infectious Diseases: None - Cardiac Hx Cardiac Disorders: No - Pulmonary Hx Respiratory Disorders: No - Neurological Hx Neurological Disorder: No - HEENT Hx HEENT Disorder: No - Renal Hx Renal Disorder: No - Endocrine/Metabolic Hx Endocrine Disorders: No - Hematological/Oncological Hx Blood Disorders: No - Integumentary Hx Dermatological Disorder: No - Musculoskeletal/Rheumatological Hx Falls: No - Gastrointestinal Hx Gastrointestinal Disorders: No - Genitourinary/Gynecological Hx Genitourinary Disorders: No - Psychiatric Hx Anxiety: Yes Hx Substance Use: No - Anesthesia Hx Anesthesia: No Hx Anesthesia Reactions: No Hx Malignant Hyperthermia: No - Suicidal Assessment Feels Threatened In Home Enviroment: No Family/Social History - Physician Review Nursing Documentation Reviewed: Yes Family/Social History: Other (nc) Smoking Status: Never Smoked Hx Alcohol Use: No Hx Substance Use: No Allergies/Home Meds Allergies/Adverse Reactions: Allergies No Known Allergies Allergy (Verified 10/30/17 03:05) Home Medications: Home Meds Medication Instructions Recorded Confirmed Clonazepam [Klonopin] 0.5 mg PO DAILY PRN 10/30/17 10/30/17 Review of Systems - Physician Review All systems were reviewed & negative as marked: Yes - Review of Systems Respiratory: SOB Cardiovascular: Chest Pain Psychiatric: Anxiety Physical Exam Vital Signs Reviewed: Yes Vital Signs Temp Pulse Resp BP Pulse Ox 10/30/17 03:17 97.6 F 67 18 134/86 99 10/30/17 03:01 97.6 F 67 18 134/86 99 Appearance: Positive for: Well-Appearing, Non-Toxic, Comfortable Pain Distress: None Mental Status: Positive for: Alert and Oriented X 3 - Systems Exam Head: Present: Atraumatic, Normocephalic Pupils: Present: PERRL Extroacular Muscles: Present: EOMI Conjunctiva: Present: Normal Mouth: Present: Moist Mucous Membranes Neck: Present: Normal Range of Motion Respiratory/Chest: Present: Clear to Auscultation, Good Air Exchange. No: Respiratory Distress, Accessory Muscle Use Cardiovascular: Present: Regular Rate and Rhythm, Normal S1, S2. No: Murmurs Abdomen: Present: Normal Bowel Sounds. No: Tenderness, Distention, Peritoneal Signs Back: Present: Normal Inspection Upper Extremity: Present: Normal Inspection. No: Cyanosis, Edema Lower Extremity: Present: Normal Inspection. No: Edema Neurological: Present: GCS=15, CN II-XII Intact, Speech Normal Skin: Present: Warm, Dry, Normal Color. No: Rashes Psychiatric: Present: Alert, Oriented x 3, Normal Insight, Normal Concentration Medical Decision Making ED Course and Treatment: 10/30/17 03:33 EKG: Ordered, reviewed, and independently interpreted the EKG. Rate : 78 BPM Rhythm : NSR Interpretation : Normal intervals, normal axis, normal EKG 10/30/17 03:36 On re-evaluation, patient feels better and is in no acute distress. I have discussed the results and plan with the patient, who expresses understanding. Patient in agreement with plan to be discharged home. Patient is stable for discharge. Patient was instructed to follow up with physician or return if symptoms worsen or new concerning symptoms arise. - EKG Interpretation Interpreted by ED Physician: Yes Type: 12 lead EKG - Scribe Statement The provider has reviewed the documentation as recorded by the Jacinta Pandya Provider Scribe Attestation: All medical record entries made by the Jacinta were at my direction and personally dictated by me. I have reviewed the chart and agree that the record accurately reflects my personal performance of the history, physical exam, medical decision making, and the department course for this patient. I have also personally directed, reviewed, and agree with the discharge instructions and disposition. Disposition/Present on Arrival - Present on Arrival History of DVT/PE: No History of Uncontrolled Diabetes: No Urinary Catheter: No History of Decub. Ulcer: No History Surgical Site Infection Following: None - Disposition Diagnosis: Anxiety Disposition: HOME/ ROUTINE Patient Problems: Current Active Problems Problem Status Onset Anxiety Acute Condition: IMPROVED Discharge Instructions (ExitCare): Anxiety (ED) Additional Instructions: Please follow up with your doctor. Return to the ER for any worsening symptoms or for any other concerns. Referrals: Katey Helms MD [Primary Care Provider] - Follow up with primary
[2017-10-30 03:50] VITALS: BP 123/77; PULSE 89; RESP 17; TEMP 97.8; O2SAT 98
--- NOTE | 2017-10-30 18:22 | CARD ---
APPROVED REPORT EKG Measurement Heart [id number] CO 156P17 [id number] <Conclusion> Normal sinus rhythm Normal ECG
== END 2017-10-30 03:50 | disposition home or self-care (01) ==
LOC: ED 02:54
DX: F41.9 Anxiety disorder, unspecified (principal)

== ENCOUNTER 2017-10-31 23:49 | Emergency (ER) | payer MEDICAID ==
[2017-10-31 23:49] VITALS: BMI 25.0
[2017-11-01 00:01] VITALS: BP 155/81; PULSE 118; RESP 22; O2SAT 100
[2017-11-01 00:02] VITALS: TEMP 98.2
--- NOTE | 2017-11-01 00:18 | ED PDOC ---
Arrival/HPI - General Chief Complaint: Anxiety Time Seen by Provider: 10/31/17 23:59 Historian: Patient - History of Present Illness Narrative History of Present Illness (Text): 11/01/17 00:17 James La is a 27 year old male, with a long-standing history of anxiety, who presents to the Emergency department complaining of anxiety. Patient was started on Zoloft which he discontinued due to the side effect and takes Klonopin when needed. Patient was recently placed on Celexa, which he only started today. Patient now complaining of racing heat rate and shortness of breath, similar to previous episode of anxiety, but believes may be related to the new medication. Patient also took 2 Klonopin at home. Patient denies any fever, chills, chest pain, nausea, vomiting, diarrhea, urinary symptoms, back pain, neck pain, headache, dizziness, or any other complaints. Symptom Onset: Gradual Symptom Course: Unchanged Activities at Onset: Light Context: Home Past Medical History - Provider Review Nursing Documentation Reviewed: Yes - Infectious Disease Hx of Infectious Diseases: None - Cardiac Hx Cardiac Disorders: No - Pulmonary Hx Respiratory Disorders: No - Neurological Hx Neurological Disorder: No - HEENT Hx HEENT Disorder: No - Renal Hx Renal Disorder: No - Endocrine/Metabolic Hx Endocrine Disorders: No - Hematological/Oncological Hx Blood Disorders: No - Integumentary Hx Dermatological Disorder: No - Musculoskeletal/Rheumatological Hx Falls: No - Gastrointestinal Hx Gastrointestinal Disorders: No - Genitourinary/Gynecological Hx Genitourinary Disorders: No - Psychiatric Hx Anxiety: Yes Hx Substance Use: No - Anesthesia Hx Anesthesia: No Hx Anesthesia Reactions: No Hx Malignant Hyperthermia: No - Suicidal Assessment Feels Threatened In Home Enviroment: No Family/Social History - Physician Review Nursing Documentation Reviewed: Yes Family/Social History: Unknown Family HX Smoking Status: Never Smoked Hx Alcohol Use: No Hx Substance Use: No Allergies/Home Meds Allergies/Adverse Reactions: Allergies No Known Allergies Allergy (Verified 11/01/17 00:06) Home Medications: Home Meds Medication Instructions Recorded Confirmed Clonazepam [Klonopin] 0.5 mg PO DAILY PRN 10/30/17 11/01/17 Review of Systems - Physician Review All systems were reviewed & negative as marked: Yes - Review of Systems Constitutional: Normal. absent: Fevers Eyes: Normal ENT: Normal Respiratory: SOB Cardiovascular: Palpitations. absent: Chest Pain Gastrointestinal: Normal. absent: Abdominal Pain, Diarrhea, Nausea, Vomiting Genitourinary Male: Normal. absent: Dysuria, Frequency, Hematuria, Urinary Output Changes Musculoskeletal: Normal. absent: Back Pain, Neck Pain Skin: Normal. absent: Rash Neurological: Normal. absent: Headache, Dizziness Endocrine: Normal Hemo/Lymphatic: Normal Psychiatric: Anxiety Physical Exam Vital Signs Reviewed: Yes Vital Signs Temp Pulse Resp BP Pulse Ox 11/01/17 00:01 98.2 F 10/31/17 23:56 118 H 22 155/81 H 100 Temperature: Afebrile Blood Pressure: Hypertensive Pulse: Tachycardic Respiratory Rate: Normal Appearance: Positive for: Well-Appearing, Non-Toxic, Comfortable Pain Distress: None Mental Status: Positive for: Alert and Oriented X 3 - Systems Exam Head: Present: Atraumatic, Normocephalic Pupils: Present: PERRL Extroacular Muscles: Present: EOMI Conjunctiva: Present: Normal Mouth: Present: Moist Mucous Membranes Neck: Present: Normal Range of Motion Respiratory/Chest: Present: Clear to Auscultation, Good Air Exchange. No: Respiratory Distress, Accessory Muscle Use Cardiovascular: Present: Normal S1, S2, Tachycardic. No: Murmurs Abdomen: Present: Normal Bowel Sounds. No: Tenderness, Distention, Peritoneal Signs Back: Present: Normal Inspection Upper Extremity: Present: Normal Inspection. No: Cyanosis, Edema Lower Extremity: Present: Normal Inspection. No: Edema Neurological: Present: GCS=15, CN II-XII Intact, Speech Normal Skin: Present: Warm, Dry, Normal Color. No: Rashes Psychiatric: Present: Alert, Oriented x 3, Normal Insight, Normal Concentration Medical Decision Making ED Course and Treatment: 11/01/17 00:17 Impression: 27 year old male complaining of shortness of breath and racing heart rate tonight. Differential Diagnosis included but are not limited to: anxiety Plan: -- EKG -- CXR -- Labs, cardiac enzymes, D-dimer -- Urine drug screen -- Reassess and disposition Prior Visits: Notes and results from previous visits were reviewed. On 10/30/17, pt was seen in the Emergency department for shortness of breath, chest pain, and anxiety. Pt was d/c home. Progress Notes: Reviewed EKG, sinus tachycardia at [address] bpm[address] Non-specific ST/T wave changes. 11/01/17 01:08 Pt refusing labwork, believes it is just his anxiety. Patient is choosing to leave against medical advice. I have personally explained to the patient that choosing to do so may result in permanent bodily harm or . I have discussed at great length that without further evaluation and monitoring there may be unforeseen circumstances and/or deterioration causing permanent bodily harm or as a result of their choice. The patient is alert, oriented, and shows the mental capacity to make clear decisions regarding the patients health care at this time. The patient continues to wish to leave against medical advice. In light of the patients decision to leave against medical advice, follow-up has been arranged and the patient is aware of the importance to following up as instructed. The patient has been advised that they should return to the emergency room immediately if they change their mind at any time, or if their condition begins to change or worsen in any way.. - RAD Interpretation Radiology Orders: 11/01/17 00:18 CHEST PORTABLE [RAD] Stat - EKG Interpretation Interpreted by ED Physician: Yes Type: 12 lead EKG - Scribe Statement The provider has reviewed the documentation as recorded by the Scribe Lizette Kapoor All medical record entries made by the Scribe were at my direction and personally dictated by me. I have reviewed the chart and agree that the record accurately reflects my personal performance of the history, physical exam, medical decision making, and the department course for this patient. I have also personally directed, reviewed, and agree with the discharge instructions and disposition. Disposition/Present on Arrival - Present on Arrival Any Indicators Present on Arrival: No History of DVT/PE: No History of Uncontrolled Diabetes: No Urinary Catheter: No History of Decub. Ulcer: No History Surgical Site Infection Following: None - Disposition Have Diagnosis and Disposition been Completed?: Yes Diagnosis: Tachycardia, Anxiety Disposition: AGAINST MEDICAL ADVICE Disposition Time: 01:15 Condition: STABLE Forms: [employer] (Japanese)
--- NOTE | 2017-11-01 17:14 | CARD ---
APPROVED REPORT EKG Measurement Heart [id number] <Conclusion> Sinus tachycardia Otherwise normal ECG
== END 2017-11-01 01:14 | disposition left against medical advice (07) ==
LOC: ED 23:49
DX: F41.9 Anxiety disorder, unspecified (principal); R00.0 Tachycardia, unspecified

== ENCOUNTER 2018-03-10 03:42 | Emergency (ER) | payer MEDICAID ==
[2018-03-10 03:48] VITALS: BMI 25.8
--- NOTE | 2018-03-10 03:48 | ED PDOC ---
Arrival/HPI - General Time Seen by Provider: 03/10/18 03:43 Historian: Patient - History of Present Illness Narrative History of Present Illness (Text): 03/10/18 03:48 James La is a 27 year old male, with a long-standing history of anxiety, who presents to the Emergency department complaining of anxiety. Patient states he has began experiencing shortness of breath and tremors while watching TV at home tonight. Patient reports associated racing thought and difficulty sleeping. Patient states symptoms are consistent with previous episodes of anxiety and reports he no longer takes medication for anxiety. Patient states he does not want to see psych and is requesting something to "calm down." Patient denies any suicidal ideation, homicidal ideation, fever, chills, chest pain, shortness of breath, nausea, vomiting, diarrhea, urinary symptoms, back pain, neck pain, headache, dizziness, or any other complaints. Symptom Onset: Gradual Symptom Course: Unchanged Activities at Onset: Light Context: Home Past Medical History - Provider Review Nursing Documentation Reviewed: Yes - Infectious Disease Hx of Infectious Diseases: None - Cardiac Hx Cardiac Disorders: No - Pulmonary Hx Respiratory Disorders: No - Neurological Hx Neurological Disorder: No - HEENT Hx HEENT Disorder: No - Renal Hx Renal Disorder: No - Endocrine/Metabolic Hx Endocrine Disorders: No - Hematological/Oncological Hx Blood Disorders: No - Integumentary Hx Dermatological Disorder: No - Musculoskeletal/Rheumatological Hx Falls: No - Gastrointestinal Hx Gastrointestinal Disorders: No - Genitourinary/Gynecological Hx Genitourinary Disorders: No - Psychiatric Hx Anxiety: Yes Hx Substance Use: No - Anesthesia Hx Anesthesia: No Hx Anesthesia Reactions: No Hx Malignant Hyperthermia: No - Suicidal Assessment Feels Threatened In Home Enviroment: No Family/Social History - Physician Review Nursing Documentation Reviewed: Yes Family/Social History: Unknown Family HX Smoking Status: Never Smoked Hx Alcohol Use: No Hx Substance Use: No Allergies/Home Meds Allergies/Adverse Reactions: Allergies No Known Allergies Allergy (Verified 11/01/17 00:06) Review of Systems - Physician Review All systems were reviewed & negative as marked: Yes - Review of Systems Constitutional: Other (+shakin). absent: Fevers Eyes: Normal ENT: Normal Respiratory: SOB Cardiovascular: Normal Gastrointestinal: Normal Genitourinary Male: Normal Musculoskeletal: Normal. absent: Neck Pain Skin: Normal. absent: Rash Neurological: Normal. absent: Headache, Dizziness Endocrine: Normal Hemo/Lymphatic: Normal Psychiatric: Anxiety Physical Exam Vital Signs Reviewed: Yes Vital Signs Temp Pulse Resp BP Pulse Ox 03/10/18 05:40 88 18 134/89 100 03/10/18 03:53 18 100 03/10/18 03:50 97.9 F 78 18 137/99 H 100 Temperature: Afebrile Blood Pressure: Normal Pulse: Regular Respiratory Rate: Normal Appearance: Positive for: Well-Appearing, Non-Toxic, Comfortable Pain Distress: None Mental Status: Positive for: Alert and Oriented X 3 - Systems Exam Head: Present: Atraumatic, Normocephalic Pupils: Present: PERRL Extroacular Muscles: Present: EOMI Conjunctiva: Present: Normal Mouth: Present: Moist Mucous Membranes Neck: Present: Normal Range of Motion Respiratory/Chest: Present: Clear to Auscultation, Good Air Exchange. No: Respiratory Distress, Accessory Muscle Use Cardiovascular: Present: Regular Rate and Rhythm, Normal S1, S2. No: Murmurs Abdomen: No: Tenderness, Distention, Peritoneal Signs Back: Present: Normal Inspection Upper Extremity: Present: Normal Inspection. No: Cyanosis, Edema Lower Extremity: Present: Normal Inspection. No: Edema Neurological: Present: GCS=15, CN II-XII Intact, Speech Normal Skin: Present: Warm, Dry, Normal Color. No: Rashes Psychiatric: Present: Alert, Oriented x 3, Normal Insight, Normal Concentration Medical Decision Making ED Course and Treatment: 03/10/18 03:48 Impression: 27 year old male complaining of anxiety. Differential Diagnosis included but are not limited to: anxiety Plan: -- Ativan -- Reassess and disposition Progress Notes: 03/10/18 05:41 On re-evaluation, patient feels better and is in no acute distress. Pt states he does not want to see psych. Patient in agreement with plan to be discharged home. Patient is stable for discharge. Patient was instructed to follow up with physician or return if symptoms worsen or new concerning symptoms arise. - Medication Orders Current Medication Orders: Discontinued Medications Clonazepam (Klonopin) 1 mg PO STAT STA PRN Reason: Protocol Stop: 03/10/18 04:32 Last Admin: 03/10/18 04:53 Dose: 1 mg Lorazepam (Ativan) 1 mg PO ONCE ONE PRN Reason: Protocol Stop: 03/10/18 03:50 Last Admin: 03/10/18 03:58 Dose: 1 mg - Scribe Statement The provider has reviewed the documentation as recorded by the Jacinta Kapoor Provider Scribe Attestation: All medical record entries made by the Scribe were at my direction and personally dictated by me. I have reviewed the chart and agree that the record accurately reflects my personal performance of the history, physical exam, medical decision making, and the department course for this patient. I have also personally directed, reviewed, and agree with the discharge instructions and disposition. Disposition/Present on Arrival - Present on Arrival Any Indicators Present on Arrival: No History of DVT/PE: No History of Uncontrolled Diabetes: No Urinary Catheter: No History Surgical Site Infection Following: None - Disposition Have Diagnosis and Disposition been Completed?: Yes Diagnosis: Anxiety Disposition: HOME/ ROUTINE Disposition Time: 05:41 Condition: GOOD Discharge Instructions (ExitCare): Anxiety, Adult (DC) Prescriptions: Clonazepam [Klonopin] 0.5 mg PO DAILY #5 tablet Forms: [employer] (Yakut)
[2018-03-10 03:53] VITALS: RESP 18; TEMP 97.9; O2SAT 100
[2018-03-10 06:33] VITALS: BP 134/89; PULSE 88
== END 2018-03-10 05:40 | disposition home or self-care (01) ==
LOC: ED 03:42
DX: F41.9 Anxiety disorder, unspecified (principal)

== ENCOUNTER 2018-04-14 00:17 | Emergency (ER) | payer MEDICAID ==
[2018-04-14 00:17] VITALS: BMI 25.8
== END 2018-04-14 01:15 | disposition left against medical advice (07) ==
LOC: ED 00:17
DX: Z02.89 Encounter for other administrative examinations (principal); F41.9 Anxiety disorder, unspecified

== ENCOUNTER 2018-10-19 23:44 | Emergency (ER) | payer MEDICAID ==
[2018-10-19 23:46] VITALS: BMI 25.8
== END 2018-10-20 00:21 | disposition left against medical advice (07) ==
LOC: ED 23:44
DX: Z02.89 Encounter for other administrative examinations (principal); R06.02 Shortness of breath

== ENCOUNTER 2018-12-11 23:53 | Emergency (ER) | payer MEDICAID ==
[2018-12-11 23:55] VITALS: BMI 25.8
== END 2018-12-12 00:35 | disposition left against medical advice (07) ==
LOC: ED 23:53
DX: Z02.89 Encounter for other administrative examinations (principal); F41.9 Anxiety disorder, unspecified

== ENCOUNTER 2019-01-18 23:16 | Emergency (ER) | payer MEDICAID ==
[2019-01-18 23:17] VITALS: BMI 25.8
[2019-01-18 23:27] VITALS: PULSE 89; RESP 19; TEMP 97.5; O2SAT 100
--- NOTE | 2019-01-18 23:34 | ED PDOC ---
Arrival/HPI - General Chief Complaint: Anxiety Time Seen by Provider: 01/18/19 23:22 Historian: Patient - History of Present Illness Narrative History of Present Illness (Text): 01/18/19 23:33 James La is a 28 year old male, whose past medical history includes anxiety and depression, who presents to the Emergency department complaining of anxiety. Patient states he has been feeling anxious with associated palpitations. Patient notes he has been feeling unwell and would like to speak to someone. Patient reports [facility] and was prescribed anti- depressants and Klonopin, but denies any relief. Patient states he has been "self-medicating" with Xanax. Patient denies any suicidal ideation, homicidal ideation, fever, chills, chest pain, shortness of breath, nausea, vomiting, diarrhea, urinary symptoms, back pain, neck pain, headache, dizziness, or any other complaints. Symptom Onset: Gradual Symptom Course: Unchanged Activities at Onset: Light Context: Home Past Medical History - Provider Review Nursing Documentation Reviewed: Yes - Infectious Disease Hx of Infectious Diseases: None - Cardiac Hx Cardiac Disorders: No - Pulmonary Hx Respiratory Disorders: No - Neurological Hx Neurological Disorder: No - HEENT Hx HEENT Disorder: No - Renal Hx Renal Disorder: No - Endocrine/Metabolic Hx Endocrine Disorders: No - Hematological/Oncological Hx Blood Disorders: No - Integumentary Hx Dermatological Disorder: No - Musculoskeletal/Rheumatological Hx Falls: No - Gastrointestinal Hx Gastrointestinal Disorders: No - Genitourinary/Gynecological Hx Genitourinary Disorders: No - Psychiatric Hx Anxiety: Yes Hx Substance Use: No - Anesthesia Hx Anesthesia: No Hx Anesthesia Reactions: No Hx Malignant Hyperthermia: No - Suicidal Assessment Feels Threatened In Home Enviroment: No Family/Social History - Physician Review Nursing Documentation Reviewed: Yes Family/Social History: Unknown Family HX Smoking Status: Never Smoked Hx Alcohol Use: No Hx Substance Use: No Allergies/Home Meds Allergies/Adverse Reactions: Allergies No Known Allergies Allergy (Verified 11/01/17 00:06) Home Medications: Home Meds Medication Instructions Recorded Confirmed No Known Home Med 01/18/19 01/18/19 Review of Systems - Physician Review All systems were reviewed & negative as marked: Yes - Review of Systems Constitutional: Normal. absent: Fevers Eyes: Normal ENT: Normal Respiratory: Normal. absent: SOB, Cough Cardiovascular: Palpitations. absent: Chest Pain Gastrointestinal: Normal. absent: Abdominal Pain, Diarrhea, Nausea, Vomiting Genitourinary Male: Normal. absent: Dysuria, Frequency, Hematuria, Urinary Output Changes Musculoskeletal: Normal. absent: Back Pain, Neck Pain Skin: Normal. absent: Rash Neurological: Normal. absent: Headache, Dizziness Endocrine: Normal Hemo/Lymphatic: Normal Psychiatric: Anxiety Physical Exam Vital Signs Reviewed: Yes Vital Signs Temp Pulse Resp BP Pulse Ox 01/18/19 23:27 97.5 F L 89 19 156/104 H 100 Temperature: Afebrile Blood Pressure: Normal Pulse: Regular Respiratory Rate: Normal Appearance: Positive for: Well-Appearing, Non-Toxic, Comfortable Pain Distress: None Mental Status: Positive for: Alert and Oriented X 3 - Systems Exam Head: Present: Atraumatic, Normocephalic Pupils: Present: PERRL Extroacular Muscles: Present: EOMI Conjunctiva: Present: Normal Mouth: Present: Moist Mucous Membranes Neck: Present: Normal Range of Motion Respiratory/Chest: Present: Clear to Auscultation, Good Air Exchange. No: Respiratory Distress, Accessory Muscle Use Cardiovascular: Present: Regular Rate and Rhythm, Normal S1, S2. No: Murmurs Abdomen: No: Tenderness, Distention, Peritoneal Signs Back: Present: Normal Inspection Upper Extremity: Present: Normal Inspection. No: Cyanosis, Edema Lower Extremity: Present: Normal Inspection. No: Edema Neurological: Present: GCS=15, CN II-XII Intact, Speech Normal Skin: Present: Warm, Dry, Normal Color. No: Rashes Psychiatric: Present: Alert, Oriented x 3, Normal Insight, Normal Concentration Medical Decision Making ED Course and Treatment: 01/18/19 23:33 Impression: 28 year old male complaining of anxiety. Plan: -- EKG -- Chest X-ray -- Labs, alcohol level -- Urine drug screen -- Atarax -- Reassess and disposition Prior Visits: Notes and results from previous visits were reviewed. Progress Notes: Reviewed EKG, NSR at [address]-segment elevations or depressions, no T-wave inversions, normal intervals. 01/19/19 00:49 Chest X-ray reviewed, shows no acute processes. 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 Pt psychiatrically and medically cleared for discharge home with outpt f/u at [facility]. - Scribe Statement The provider has reviewed the documentation as recorded by the Jacinta Kapoor Provider Scribe Attestation: All medical record entries made by the Scribe were at my direction and personally dictated by me. I have reviewed the chart and agree that the record accurately reflects my personal performance of the history, physical exam, medical decision making, and the department course for this patient. I have also personally directed, reviewed, and agree with the discharge instructions and disposition. Disposition/Present on Arrival - Present on Arrival Any Indicators Present on Arrival: No History of DVT/PE: No History of Uncontrolled Diabetes: No Urinary Catheter: No History of Decub. Ulcer: No History Surgical Site Infection Following: None - Disposition Have Diagnosis and Disposition been Completed?: Yes Diagnosis: Anxiety Disposition: HOME/ ROUTINE Disposition Time: 02:27 Patient Plan: Discharge Patient Problems: Current Active Problems Problem Status Onset Anxiety Acute Condition: STABLE Discharge Instructions (ExitCare): Anxiety, Adult (DC) Additional Instructions: Follow up outpatient as instructed Referrals: Marvel Barnett MD [Primary Care Provider] - Follow up with primary [facility] [Outside] - Follow up with primary Forms: [employer] (Croatian)
[2019-01-19 00:32] LABS: MEAN CELL VOLUME 82.8 fl (80.0-105.0); MEAN CORPUSCULAR HEMOGLOBIN 29.6 pg (25.0-35.0); MEAN CORPUSCULAR HGB CONC 35.7 g/dl (31.0-37.0); MEAN PLATELET VOLUME 9.2 fl (7.0-11.0); RBC 5.75 10^6/uL (3.5-6.1); WHITE BLOOD COUNT 5.9 10^3/uL (4.5-11.0)
[2019-01-19 00:45] LABS: ALB/GLOB RATIO 1.4 (1.1-1.8); ALBUMIN 5.3 g/dL (3.0-4.8); ALT/SGPT 19 U/L (7-56); AST/SGOT 30 U/L (17-59); BLOOD UREA NITROGEN 19 mg/dL (7-21); CALCIUM 10.3 mg/dL (8.4-10.5); GFR NON-AFRICAN AMERICAN > 60
--- NOTE | 2019-01-19 09:05 | RAD ---
Date of service: 01/18/2019 HISTORY: fever COMPARISON: 07/26/2017 FINDINGS: LUNGS: No active pulmonary disease. PLEURA: No significant pleural effusion identified, no pneumothorax apparent. CARDIOVASCULAR: No aortic atherosclerotic calcification present. Normal cardiac size. No pulmonary vascular congestion. OSSEOUS STRUCTURES: No significant abnormalities. VISUALIZED UPPER ABDOMEN: Normal. OTHER FINDINGS: None. IMPRESSION: No active disease.
[2019-01-19 09:30] VITALS: BP 139/77
--- NOTE | 2019-01-19 14:02 | CARD ---
APPROVED REPORT Date of service: 01/18/2019 EKG Measurement Heart [id number] <Conclusion> Normal sinus rhythm Normal ECG
== END 2019-01-19 02:55 | disposition home or self-care (01) ==
LOC: ED 23:16
DX: F41.9 Anxiety disorder, unspecified (principal)

== ENCOUNTER 2019-04-11 22:24 | Emergency (ER) | payer MEDICAID ==
[2019-04-11 22:25] VITALS: BMI 25.8
[2019-04-11 22:39] VITALS: RESP 16; TEMP 98.4
[2019-04-11 23:18] VITALS: BP 128/77; PULSE 93; O2SAT 98
--- NOTE | 2019-04-11 23:52 | ED PDOC ---
Arrival/HPI - General Chief Complaint: Palpitations Time Seen by Provider: 04/11/19 22:32 Historian: Patient - History of Present Illness Narrative History of Present Illness (Text): 04/11/19 23:49 28 year old male, whose past medical history includes anxiety and depression, who presents to the Emergency department complaining of anxiety and palpitations. Patient states he has been feeling anxious with associated palpitations. Patient reports similar symptoms in the past. Patient denies any fever, chills, chest pain, shortness of breath, nausea, vomiting, diarrhea, urinary symptoms, back pain, neck pain, headache, dizziness, or any other complaints. PMD: Dr. Barnett Symptom Onset: Sudden Symptom Course: Unchanged Activities at Onset: Light Context: Home Past Medical History - Provider Review Nursing Documentation Reviewed: Yes - Infectious Disease Hx of Infectious Diseases: None - Cardiac Hx Cardiac Disorders: No - Pulmonary Hx Respiratory Disorders: No - Neurological Hx Neurological Disorder: No - HEENT Hx HEENT Disorder: No - Renal Hx Renal Disorder: No - Endocrine/Metabolic Hx Endocrine Disorders: No - Hematological/Oncological Hx Blood Disorders: No - Integumentary Hx Dermatological Disorder: No - Musculoskeletal/Rheumatological Hx Falls: No - Gastrointestinal Hx Gastrointestinal Disorders: No - Genitourinary/Gynecological Hx Genitourinary Disorders: No - Psychiatric Hx Psychophysiologic Disorder: Yes Hx Anxiety: Yes Hx Substance Use: No - Anesthesia Hx Anesthesia: No Hx Anesthesia Reactions: No Hx Malignant Hyperthermia: No - Suicidal Assessment Feels Threatened In Home Enviroment: No Family/Social History - Physician Review Nursing Documentation Reviewed: Yes Family/Social History: No Known Family HX Smoking Status: Never Smoked Hx Alcohol Use: No Hx Substance Use: No Allergies/Home Meds Allergies/Adverse Reactions: Allergies No Known Allergies Allergy (Verified 04/11/19 22:38) Home Medications: Home Meds Medication Instructions Recorded Confirmed clonazePAM [clonAZEPAM] 0.5 mg PO TID PRN 04/11/19 04/11/19 Review of Systems - Physician Review All systems were reviewed & negative as marked: Yes - Review of Systems Constitutional: absent: Fevers, Other (chills) Respiratory: absent: SOB Cardiovascular: Palpitations. absent: Chest Pain Gastrointestinal: absent: Diarrhea, Nausea, Vomiting Genitourinary Male: absent: Dysuria, Frequency, Hematuria Musculoskeletal: absent: Back Pain, Neck Pain Neurological: absent: Headache, Dizziness Psychiatric: Anxiety Physical Exam Vital Signs Reviewed: Yes Vital Signs Temp Pulse Resp BP Pulse Ox 04/11/19 23:17 93 H 16 128/77 98 04/11/19 22:34 98.4 F 107 H 16 144/84 99 Temperature: Afebrile Blood Pressure: Normal Pulse: Tachycardic Respiratory Rate: Normal Appearance: Positive for: Well-Appearing, Non-Toxic, Comfortable Pain Distress: None Mental Status: Positive for: Alert and Oriented X 3 - Systems Exam Head: Present: Atraumatic, Normocephalic Pupils: Present: PERRL Extroacular Muscles: Present: EOMI Conjunctiva: Present: Normal Mouth: Present: Moist Mucous Membranes Neck: Present: Normal Range of Motion Respiratory/Chest: Present: Clear to Auscultation, Good Air Exchange. No: Respiratory Distress, Accessory Muscle Use Cardiovascular: Present: Tachycardic. No: Murmurs Abdomen: No: Tenderness, Distention, Peritoneal Signs Back: Present: Normal Inspection Upper Extremity: Present: Normal Inspection. No: Cyanosis, Edema Lower Extremity: Present: Normal Inspection. No: Edema Neurological: Present: GCS=15, CN II-XII Intact, Speech Normal Skin: Present: Warm, Dry, Normal Color. No: Rashes Psychiatric: Present: Alert, Oriented x 3, Normal Insight, Normal Concentration Medical Decision Making ED Course and Treatment: 04/11/19 23:54 Impression: 28 year old male presents complaining of palpitations and anxiety tonight. Plan: -- Prescription for Inderal -- Reassess and disposition Prior Visits: Notes and results from previous visits were reviewed. Progress Notes: Patient is in no acute distress. I have discussed the plan with the patient, who expresses understanding. Patient in agreement with plan to be discharged home. Patient is stable for discharge. Patient was instructed to follow up with physician or return if symptoms worsen or new concerning symptoms arise. - EKG Interpretation Type: 12 lead EKG (sinus tachcardia rate 117 no acute changes) - Scribe Statement The provider has reviewed the documentation as recorded by the Scribe Loni Medina Provider Scribe Attestation: All medical record entries made by the Scribe were at my direction and personally dictated by me. I have reviewed the chart and agree that the record accurately reflects my personal performance of the history, physical exam, medical decision making, and the department course for this patient. I have also personally directed, reviewed, and agree with the discharge instructions and disposition. Disposition/Present on Arrival - Present on Arrival Any Indicators Present on Arrival: No History of DVT/PE: No History of Uncontrolled Diabetes: No Urinary Catheter: No History of Decub. Ulcer: No History Surgical Site Infection Following: None - Disposition Have Diagnosis and Disposition been Completed?: Yes Diagnosis: Tachycardia, Anxiety Disposition: HOME/ ROUTINE Disposition Time: 23:25 Condition: STABLE Discharge Instructions (ExitCare): Tachycardia, Anxiety, Adult (DC) Prescriptions: Propranolol [Inderal] 5 mg PO DAILY #5 tab Referrals: Marvel Barnett MD [Primary Care Provider] - Follow up with primary Forms: [email or web address] ([place]ian)
--- NOTE | 2019-04-12 10:52 | CARD ---
APPROVED REPORT Date of service: 04/11/2019 EKG Measurement Heart [id number] <Conclusion> Sinus tachycardia Otherwise normal ECG
== END 2019-04-11 23:23 | disposition home or self-care (01) ==
LOC: ED 22:24
DX: R00.0 Tachycardia, unspecified (principal); F41.9 Anxiety disorder, unspecified